=== PATIENT | male | born 1960 | race Caucasian/White ===

== ENCOUNTER 2024-02-07 23:37 | Inpatient (IN) | payer OTHER, SELFPAY ==
[2024-02-07] VITALS (9 sets, daily range): BP systolic 83–98; BP diastolic 61–66; BMI 30.6
--- NOTE | 2024-02-07 17:48 | ED.GENMED ---
History of Present Illness
General
Chief Complaint: Cold/Flu/URI Symptoms
Source: patient
Exam Limitations: none
Time Seen by Provider: 02/07/24 17:46
Nursing documentation reviewed up to this point in time: agreed with
History of Present Illness
History of Present Illness:
63-year-old male with a past medical history of hypertension, hyperlipidemia who presents to the emergency room for evaluation of flulike syndrome�[facility] of tachycardia and hypotension in the setting of these
symptoms. Patient reports that he started feeling ill last night around 10 PM and was up most of the night with fever/chills (Tmax 104 degrees Fahrenheit) as well as nausea and vomiting. He says he has had some crampy abdominal pain. He says he
has had mild cough and rhinorrhea but this is actually been an ongoing issue for about 2 weeks�he says he is being treated for sinus infection with amoxicillin and steroids for the past week. He has had some mild shortness of breath since last
night. Denies any chest pain. He denies any diarrhea. He denies any headache or neck pain. He denies any sore throat. Denies any other complaints. No known sick contacts. Initially seen in urgent care and was found to be tachycardic and
mildly hypotensive and EMS was called to transport to the [facility] on their arrival his blood pressure was 108/60 and he was complaining of nausea. He was given IV Zofran, IV fluids and transported to the ER.
Past History
Past History
ED Past Medical History: HTN, Hypercholesterolemia, Hypothyroidism and Other (depression)
ED Past Surgical History: None (lamienctomy)
Social History
Tobacco: Non-smoker
Alcohol: Occasional
Drug: None
Personal:
Living: with family
Family History
Family History: CAD (father cad in 80s) and Other
Review of Systems
Review of Systems
All Other Systems: ROS reviewed and negative except as documented in HPI and ROS
Constitutional: Reports fever, fatigue and chills
EENT: Reports runny nose; Denies sore throat
Respiratory: Reports cough and trouble breathing
Cardiac: Denies chest pain or palpitations
ABD/GI: Reports abdominal pain, nausea and vomiting; Denies diarrhea
: Denies flank pain
Musculoskeletal: Denies neck pain or back pain
Neurological: Denies dizzy or headache
Phy Exam
Physical Exam
Physical Exam:
General: Awake, alert, oriented x3; no acute distress
Head: Normocephalic, atraumatic
Eyes: Conjunctiva normal, sclera anicteric
Throat: Airway intact, handling secretions, somewhat dry mucous membranes
Neck: Trachea midline, supple without meningismus
Lungs: Clear to auscultation bilaterally, no wheezing, rales, rhonchi
Heart: Tachycardia with regular rhythm, no murmurs, gallops, or rubs
Abd: Soft, non distended, mild diffuse tenderness
Neuro: No gross deficits
Skin: no rash
Extremities: No edema in extremities, warm and well-perfused
Scores
Heart Failure Risk
Heart Failure Risk Score: Not Applicable
Heart Score for Chest Pain Patients
STEMI patient?: Not applicable
Withdrawal Assessment of Alcohol
Withdrawal Assessment Completed?: Not applicable
Course
Orders/Labs/Results
Orders:
Orders
02/07/24 17:46
Electrocardiogram (*1) Urgent
Reason for Study: Abdominal Pain
EKG- Treatment ONCE
CR Chest - 2 Views Urgent
Comment:
Reason For Exam: cough, sob
02/07/24 17:47
0.9% Sodium Chloride 1000 ml [Nss] 1,000 ml IV BOLUS
Ibuprofen [Motrin] 400 mg PO NOW STA
02/07/24 17:53
CT Abd/pelvis W Iv Cont Urgent
Comment:
Reason For Exam: mid abd pain, N/V, fever
02/07/24 18:00
COVID-19 Antigen Urgent
Source: Nasal Swab
CPK [Creatine Phosphokinase] Urgent
Complete Blood Count/With Diff Urgent
Comprehensive Metabolic Panel Urgent
Lipase Urgent
Magnesium Urgent
Troponin I Urgent
Influenza A+B Rapid Molecular Urgent
ANASTASIA Source: Nasal Swab
Specimen Description:
02/07/24 19:42
US Abdomen Complete/Upper Urgent
Comment:
Reason For Exam: abd pain, n/v, fever
02/07/24 19:47
0.9% Sodium Chloride 1000 ml [Nss] 1,000 ml IV BOLUS
02/07/24 22:46
Piperacillin/Tazo 3.375 Gram [Zosyn] 3.375 gram in 50 ml IV NOW
02/07/24 22:47
Lactate Level [Lactic Acid] Urgent
02/07/24 22:48
NSS 1000mL Bolus over 1 hr 0.9% Sodium Chloride 1000 ml [Nss] 1,000 ml IV BOLUS
02/07/24 23:00
Blood Culture Q30M
ANASTASIA Source: Blood/Venous
Specimen Description:
02/07/24 23:30
Blood Culture Q30M
ANASTASIA Source: Blood/Venous
Specimen Description:
Abnormal Lab Results
02/07/24
18:00
RBC 4.21 L 10^6/uL
(4.70-6.10)
Hct 38.5 L %
(39.0-52.0)
MCH 32.3 H pg
(27.0-31.0)
Plt Count 124 L 10^3/uL
(130-400)
MPV 10.6 H fL
(7.4-10.4)
Absolute Neuts (auto) 8.3 H 10^3/uL
(1.4-6.5)
Absolute Lymphs (auto) 0.3 L 10^3/uL
(1.2-3.4)
Neutrophils % 91.7 H %
(42.2-75.2)
Lymphocytes % 3.1 L %
(20.5-51.1)
Sodium 132 L mmol/L
(135-145)
BUN 33 H mg/dl
(9-20)
Glucose 141 H mg/dl
(70-99)
Creatine Kinase 53 L U/L
(55-170)
Total Protein 6.1 L g/dl
(6.3-8.2)
02/07/24 18:00
02/07/24 18:00
Vital Signs
Initial and Last Documented VS:
Initial Vital Signs
Temp Pulse Resp BP Pulse Ox
38.8 C H 102 18 91/63 93
02/07/24 17:53 02/07/24 17:53 02/07/24 17:53 02/07/24 17:53 02/07/24 17:53
Last Documented Vital Signs
Temp Pulse Resp BP Pulse Ox
37.5 C 76 13 88/63 96
02/07/24 19:51 02/07/24 22:15 02/07/24 22:15 02/07/24 22:00 02/07/24 22:15
MDM/Problems Addressed
Differential Diagnosis Includes:
Gastritis, gastroenteritis, pancreatitis, cholelithiasis/cholecystitis, atypical anginal symptoms
MDM/Problems Addressed:
63-year-old male presents for evaluation of flulike syndrome started last night; has had rhinorrhea and cough for about 2 weeks but last night developed nausea/vomiting, high fever, chills, mild shortness of breath. Seen initially at urgent care
and transported via EMS to the hospital for tachycardia and hypotension. Per EMS he was normotensive on their arrival but did receive some fluids and Zofran en route. Vitals and exam as above. Will place an IV send labs including a CBC and a CMP,
lipase. Check EKG and troponin in an abundance of caution. Will check chest x-ray. Swab for COVID and flu. Check CT abdomen pelvis. Will provide some additional IV fluids. Motrin for fever�received Tylenol earlier in the afternoon from his
. Monitor closely reassess after the above.
Labs reviewed: CBC unremarkable, CMP no clinically significant abnormalities. LFTs and lipase notably normal. His COVID and flu swabs are negative. Chest x-ray showed no acute disease. CT abdomen pelvis showed gastric wall thickening which can
be seen with gastritis�certainly viral gastroenteritis could account for his symptoms however he also had distended gallbladder. He is still hypotensive. Will provide additional fluids sent for ultrasound to better evaluate for possible acute
cholecystitis.
Upper abdominal ultrasound shows prominent gallbladder with stones and sludge and top normal gallbladder wall thickness. Negative sonographic Ruby sign. Patient remains mildly hypotensive low 90s systolic despite 2 L of IV fluid. At this point
concerning for that this could be an acute cholecystitis. Will continue with fluid resuscitation. Send lactate and blood cultures. Cover with antibiotics. Discussed with general surgery for evaluation. Will admit for serial exams and continued
monitoring. Case discussed with hospitalist.
*Radiology
Radiology exam reviewed: preliminary read by ED provider and radiology read reviewed
*Pulse Oximetry
Patient hypoxic: no
*Critical Care Note
Total Time (30-74mins, 75-104mins- exclusive of procedures): Not Applicable
Data Reviewed
Source: patient, spouse and ambulance crew
Patient Management
Discussion with other providers: Hospitalist (Discussed with hospitalist) and Residential [employer] Sealing Technician (Discussed with surgeon)
Escalation/DeEscalation of care consider admission/obs:
Admission indicated
ED Attending Note
-
Portions of this chart may have been created with voice recognition software.� Occasional wrong word or��sound alike� substitutions may have occurred due to the inherent limitations of voice recognition software.
Discharge Plan
Departure
Patient Disposition: Admit
Date of Disposition: 02/07/24
Time of Disposition: 22:57
Admit to doctor: Shon
Presentation/result/management discussed w/ accepting MD/DO: Hospitalist
Discharge Problem:
Acute cholecystitis, Nausea & vomiting, Gastritis
Prescriptions:
No Action
cyclobenzaprine 10 MG tablet
10 mg PO TIDPRN PRN (Reason: muscle spasm) Qty: 30 0RF
ibuprofen 600 MG tablet
600 mg PO TIDPRN PRN (Reason: pain) Qty: 30 0RF
Referrals:
Hina Andrea MD [Family Provider] -
Interventions
Interventions:
*Risk Screen - Suicide Last Done: 02/07/24 17:49
*General Assessment Last Done: 02/07/24 17:49
*Neglect/Abuse Screening Last Done: 02/07/24 17:49
ED- Fall Risk Assessment Last Done: 02/07/24 17:55
*ED COVID-19 Vaccine History Last Done: 02/07/24 17:49
ED- Cardiac Assessment Last Done: 02/07/24 17:53
ED- Neurological Assessment Last Done: 02/07/24 17:53
ED- Pulmonary Assessment Last Done: 02/07/24 17:53
Discharge Date and Time
Print Language: WELSH
[2024-02-07] MEDS: MOTRIN 400 MG PO (17:56)
[2024-02-07] MEDS: NSS 1000 IV ×3 (17:56→23:22)
[2024-02-07 18:10] LABS: % Basophils 0.2 % (0-2); % Eosinophils 0.1 % (0-6); % Immature Granulocytes 0.4 % (0-0.5); % Lymphocytes 3.1 % (20.5-51.1); % Monocytes 4.5 % (1.7-9.3); % Neutrophils 91.7 % (42.2-75.2); Absolute Lymphocytes 0.3 10^3/uL (1.2-3.4); Absolute Monocytes 0.4 10^3/uL (0.1-0.6); Absolute Neutrophils 8.3 10^3/uL (1.4-6.5); Hematocrit 38.5 % (39.0-52.0); Hemoglobin 13.6 g/dL (13.0-18.0); Mean Corp Hgb Conc. 35.3 g/dL (33.0-37.0); Mean Corpuscular Hgb 32.3 pg (27.0-31.0); Mean Corpuscular Volume 91.4 fL (80.0-94.0); Mean Platelet Volume 10.6 fL (7.4-10.4); Nucleated Red Blood Cells % 0 % (-); Platelet Count 124 10^3/uL (130-400); Red Blood Cell Count 4.21 10^6/uL (4.70-6.10); Red Cell Dist. Width 12.6 % (11.5-14.5); White Blood Cell Count 9.1 10^3/uL (4.8-10.8)
[2024-02-07 18:24] LABS: ALT (SGPT) 48 U/L (0-50); AST (SGOT) 27 U/L (17-59); Albumin 3.7 g/dl (3.5-5.0); Alkaline Phosphatase 44 U/L (38-126); Blood Urea Nitrogen 33 mg/dl (9-20); Calcium 8.5 mg/dl (8.4-10.2); Carbon Dioxide 24 mmol/L (22-30); Chloride 100 mmol/L (98-107); Creatine Phosphokinase 53 U/L (55-170); Estimated Creatinine Clearance 101 ml/min; Glucose 141 mg/dl (70-99); Lipase 41 U/L (23-300); Magnesium 1.9 mg/dl (1.6-2.3); Potassium 3.6 mmol/L (3.5-5.1); Sodium 132 mmol/L (135-145); Total Protein 6.1 g/dl (6.3-8.2); eGFR > 60.00
[2024-02-07 18:25] LABS: COVID-19 Antigen Negative (Negative)
[2024-02-07 18:34] LABS: Troponin I < 0.012 ng/ml
[2024-02-07] MEDS: ZOSYN 50 IV (23:22)
--- NOTE | 2024-02-07 23:36 | HPS.HSE ---
Family Physician
-
Family Physician: Hina Andrea MD
Chief Complaint
-
vomiting, fever
History of Present Illness
63-year-old male past medical history of hypertension, hyperlipidemia, hypothyroidism, depression, presenting with nausea vomiting, fever and bilateral lower abdominal pain.
Patient developed postnasal drip, sinus pressure approximately 2 weeks ago and was diagnosed with acute sinusitis and started on amoxicillin and steroids. He is due to finish amoxicillin in a few days. He had some improvement in the symptoms. He
denied any cough or sore throat or shortness of breath or chest pain.
He was feeling okay until last night around 10 PM he started having fevers up to 104 nausea and vomiting. He had crampy abdominal pain particular in the bilateral lower quadrants. Denied any pain in the right upper quadrant. Denies diarrhea.
Denies sick contacts. Denies any prior history of gallbladder problems.
He went to urgent care and was found to be tachycardic and mildly hypertensive and EMS was called.
He drinks alcohol occasionally. Denies smoking.
Medical History
Past Medical History
Past Medical History: Reports Other (hypertension, hyperlipidemia, hypothyroidism, depression)
Past Surgical History: Reports Other (laminectomy )
Social History
Tobacco: Non-smoker
Alcohol: Occasional
Drug: None
Family History
Family History: Not pertinent
Allergies / Home Medications
Allergies reflects when Allergies were last updated in [facility].
Home Medications with original date entered in [facility]
Allergy/Medication List:
Allergies
Allergy/AdvReac Type Severity Reaction Status Date / Time
No Known Allergies Allergy Verified 02/07/24 17:43
Home Medications
acetaminophen 325 mg tablet (Tylenol) 650 mg PO Q6H PRN fever/mild pain 02/07/24
alfuzosin 10 mg tablet,extended release 24 hr 10 mg PO HS 02/07/24
aspirin 81 mg capsule 81 mg PO DAILY 02/07/24
atorvastatin 20 mg tablet 20 mg PO HS 02/07/24
fluoxetine 40 mg capsule 40 mg PO DAILY 02/07/24
gabapentin 300 mg capsule 300 mg PO BID 02/07/24
ibuprofen 200 mg tablet 400 mg PO Q6H PRN fever/mild pain 02/07/24
levothyroxine 50 mcg tablet 50 mcg PO DAILY 02/07/24
losartan 100 mg-hydrochlorothiazide 25 mg tablet 1 tab PO DAILY 02/07/24
Review of Systems
-
History Source: Patient
A 12 point ROS was completed and negative except as noted: Yes
Constitutional: Reports No Symptoms
EENT: Reports See HPI
Respiratory: Reports See HPI
Cardiac: Reports No Symptoms
Abdomen/GI: Reports See HPI
: Reports No Symptoms
Musculoskeletal: Reports No Symptoms
Skin: Reports No Symptoms
Neurological: Reports No Symptoms
Endocrine: Reports No Symptoms
Hematologic/Lymphatic: Reports No Symptoms
Psych: Reports No Symptoms
Physical Exam
Vital Signs
Vital Signs
Temp Pulse Resp BP Pulse Ox
99.5 F 79 11 98/66 94
02/07/24 19:51 02/07/24 23:00 02/07/24 23:15 02/07/24 23:00 02/07/24 23:15
Physical Exam
General: Well Developed, Well Nourished and No Apparent Distress
HEENT: NormoCephalic, Moist mucous membranes and Atraumatic
Respiratory: Clear
Cardiac: S1/S2 and Regular Rhythm; No Murmur or Rub
GI: Soft, Non Tender, Non Distended and Normal Bowel Sounds; No Organomegaly
Rectal: Deferred by Provider
Musculoskeletal: No Clubbing, No Cyanosis and No Edema
Skin: No Rash
Neuro: Nonfocal/grossly intact
Laboratory Results
-
02/07/24 18:00
02/07/24 18:00
Laboratory Results
Total Bilirubin 1.0 mg/dl (0.2-1.3) 02/07/24 18:00
AST 27 U/L (17-59) 02/07/24 18:00
ALT 48 U/L (0-50) 02/07/24 18:00
Alkaline Phosphatase 44 U/L (38-126) 02/07/24 18:00
Troponin I < 0.012 ng/ml 02/07/24 18:00
Lipase 41 U/L (23-300) 02/07/24 18:00
Data Reviewed
-
Lab Data: Labs Reviewed by me
Old Records: Reviewed
Impression/Plan
-
IMPRESSION:
PLAN:
# Hypotension/abdominal pain/vomiting secondary for acute cholecystitis/gastritis
-Atypical presentation
-Chest x-ray shows left basilar opacity favored to be atelectasis
-COVID and influenza negative
-CT abdomen pelvis shows diffuse gastric wall thickening suggestive of gastritis, mildly distended gallbladder
-Ultrasound shows relatively prominent gallbladder containing stones and sludge negative sonographic Ruby sign
-Check blood cultures
-IV fluids
-N.p.o.
-Hold aspirin
-Zosyn
-General Surgery consulted, may need more emergent cholecystectomy if patient clinically worsens
-Hold ibuprofen
-IV Protonix 40 daily
# Recent acute sinusitis
-Currently on amoxicillin
Essential hypertension
-Hold losartan/hydrochlorothiazide
Hyperlipidemia
-Continue statin
Hypothyroidism
-Continue levothyroxine
Depression
-Continue fluoxetine
-Continue nortriptyline
BPH
-Hold alfuzosin
Full code
DVT prophylaxis�SCDs
N.p.o.
[2024-02-07 23:45] LABS: Lactic Acid 0.8 mmol/L (0.7-2.0)
[2024-02-08] VITALS (16 sets, daily range): BP systolic 85–119; BP diastolic 59–72; BMI 30.9
[2024-02-08] MEDS: ZOSYN IV (00:35)
[2024-02-08] MEDS: NSS 1000 IV ×3 (01:18→23:32)
[2024-02-08] MEDS: ZOSYN 50 IV ×4 (06:23→23:32)
[2024-02-08] MEDS: SYNTHROID 50 MCG PO (06:24)
[2024-02-08 06:58] LABS: % Basophils 0.1 % (0-2); % Eosinophils 0.3 % (0-6); % Immature Granulocytes 0.3 % (0-0.5); % Lymphocytes 10.8 % (20.5-51.1); % Monocytes 4.9 % (1.7-9.3); % Neutrophils 83.6 % (42.2-75.2); Absolute Monocytes 0.4 10^3/uL (0.1-0.6); Absolute Neutrophils 7.3 10^3/uL (1.4-6.5); Hematocrit 35.6 % (39.0-52.0); Hemoglobin 12.1 g/dL (13.0-18.0); Mean Corpuscular Hgb 32.6 pg (27.0-31.0); Mean Platelet Volume 11.1 fL (7.4-10.4); Nucleated Red Blood Cells % 0 % (-); Platelet Count 120 10^3/uL (130-400); Red Blood Cell Count 3.71 10^6/uL (4.70-6.10); Red Cell Dist. Width 12.7 % (11.5-14.5); White Blood Cell Count 8.8 10^3/uL (4.8-10.8)
[2024-02-08 07:11] LABS: ALT (SGPT) 39 U/L (0-50); AST (SGOT) 21 U/L (17-59); Albumin 3.1 g/dl (3.5-5.0); Alkaline Phosphatase 37 U/L (38-126); Blood Urea Nitrogen 23 mg/dl (9-20); Calcium 7.7 mg/dl (8.4-10.2); Carbon Dioxide 27 mmol/L (22-30); Chloride 104 mmol/L (98-107); Estimated Creatinine Clearance 114 ml/min; Glucose 98 mg/dl (70-99); Potassium 3.9 mmol/L (3.5-5.1); Sodium 138 mmol/L (135-145); Total Bilirubin 0.6 mg/dl (0.2-1.3); Total Protein 5.5 g/dl (6.3-8.2); eGFR > 60.00
[2024-02-08] MEDS: PROZAC 40 MG PO (08:15)
[2024-02-08] MEDS: NEURONTIN 300 MG PO ×2 (08:16→20:02)
[2024-02-08] MEDS: PROTONIX IV 40 MG IV (08:16)
--- NOTE | 2024-02-08 12:23 | CM ---
Chart reviewed. Patient is here for, according to attending, 'hypotension/abdominal pain/vomiting secondary to acute cholecystitis/gastritis.' Patient's also at bedside. CM introduced self and role. Patient is independent. He lives at home with
and father in law. He owns a ML home, with 5 [address]. Does not own any DME. 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 He has active PCP and pharmacy ([facility] on [facility]). No +SDOHs.
ANTICIPATED DISCHARGE PLAN: Discharge to home with , when medically cleared.
[2024-02-08] MEDS: TYLENOL 650 MG PO (12:24)
--- NOTE | 2024-02-08 12:43 | CON.GS ---
Medical History
-
Chief Complaint: Fever
History of Present Illness:
Mr. Hendricks is a 63 yo male with a h/o htn, hld, and lumbar spinal surgery who presents for evaluation of fever. He notes after he had dinner on Thursday (02/05), he developed nausea and vomiting. He notes poor appetite since that time. He had
some cramping pain in the lower abdomen which he attributed to constipation. He developed a fever of 104 at home with more n/v last night and presented to urgent care. He was noted to be tachycardic with low BP and it was recommended that he come to
the ED for further evaluation. He denies nausea or abdominal pain currently. Abdomen is nontender and nondistended on exam.
Past Medical History
Past Medical History: HTN, Hypercholesterolemia, Hypothyroidism and Other (LE neuropathy )
Past Surgical History: Orthopedic (L5-S1 laminectomy) and Other (colonoscopy 2022 with )
Social History
Tobacco: Non-Smoker
Alcohol: Occasional
Personal:
Living: With Family
Employment: Employed
Family History
Family History: Cancer (colon ca in mother)
Allergies / Home Medications
Allergy/AdvReac Type Severity Reaction Status Date / Time
No Known Allergies Allergy Verified 02/07/24 17:43
�Medication �Instructions �Recorded �Confirmed �Type
alfuzosin 10 mg tablet,extended 10 mg PO HS 02/07/24 02/08/24 History
release 24 hr
atorvastatin 20 mg tablet 20 mg PO HS 02/07/24 02/08/24 History
fluoxetine 40 mg capsule 40 mg PO DAILY 02/07/24 02/08/24 History
gabapentin 300 mg capsule 300 mg PO BID 02/07/24 02/08/24 History
ibuprofen 200 mg tablet 400 mg PO Q6HPRN PRN fever/mild 02/07/24 02/08/24 History
pain
levothyroxine 50 mcg tablet 50 mcg PO DAILY 02/07/24 02/08/24 History
losartan 100 1 tab PO DAILY 02/07/24 02/08/24 History
mg-hydrochlorothiazide 25 mg tablet
amoxicillin 875 mg-potassium 1 tab PO BID 02/08/24 02/08/24 History
clavulanate 125 mg tablet
aspirin 81 mg tablet,delayed 81 mg PO DAILY 02/08/24 02/08/24 History
release
Review of Systems
-
History Source: Patient and Family
All other systems: Negative unless noted
A 10 point review of systems was completed, and was negative except as per HPI.
Physical Exam
Vital Signs
Temp Pulse Resp BP Pulse Ox
97.8 F 65 12 113/72 97
02/08/24 11:48 02/08/24 11:45 02/08/24 11:45 02/08/24 11:00 02/08/24 11:45
02/07/24 02/08/24 02/09/24
06:59 06:59 06:59
Actual Weight 99.6 kg
Body Mass Index (BMI) 30.6
Lab Results
02/08/24 06:20
02/08/24 06:20
WBC 8.8 10^3/uL (4.8-10.8) 02/08/24 06:20
Hgb 12.1 g/dL (13.0-18.0) L 02/08/24 06:20
Hct 35.6 % (39.0-52.0) L 02/08/24 06:20
Plt Count 120 10^3/uL (130-400) L 02/08/24 06:20
Abs Immat Gran (auto) 0.0 10^3/uL (0-0.05) 02/08/24 06:20
Neutrophils % 83.6 % (42.2-75.2) H 02/08/24 06:20
Physical Exam
General: Well Developed, Well Nourished and No Apparent Distress
HEENT: Normocephalic and Moist Mucous Membranes
Respiratory: Non Labored Respirations
GI: Soft, Non Tender and Non Distended
Skin: Warm and Dry
Neuro: Awake, Alert and AO x 3
Psych: Calm
Data Reviewed
-
CT Scan: Image Personally Visualized and interpreted, Report Reviewed by me, Discussed with Physician, Discussed with Nurse, Discussed with Patient and Discussed with Family
Ultrasound: Report Reviewed by me, Discussed with Physician, Discussed with Patient and Discussed with Family
Labs: Labs Reviewed by me, Discussed with Physician, Discussed with Patient and Discussed with Family
Old Records: Reviewed
Assessment / Plan
-
63 yo male presenting with 2 days of intermittent n/v after meals with high fever at home of 104 causing him to present for evaluation. His tmax is 101.9 since presentation with stable vital signs. He has some cramping in the lower abdomen with
constipation noted, but otherwise has no abdominal pain or tenderness.
CT imaging with enlarged gallbladder but no significant pericholecystic edema/inflammatory changes with nonobstructing renal calculi and gastric thickening. US imaging with prominent gallbladder containing stones and sludge with top normal
gallbladder wall. Negative sonographic Ruby's sign.
Possible acute cholecystitis as the etiology of his fever and vomiting, however, exam is benign without abdominal tenderness to deep palpation.
--Will check HIDA scan in further evaluation
--IV abx
--Keep NPO
--Will follow
--- NOTE | 2024-02-08 15:00 | PTCARENOTE ---
Received patient at 1500 from ED. Patient AAOx3, c/o minimal lower abdominal pain. Patient ambulated from [place] to bed with a steady gait. IV infusing L AC. at bedside. Patient remains NPO for possible OR. Patient verbalized understanding, call
gavin in reach.
--- NOTE | 2024-02-08 16:51 | W.PN.HOSP.TC ---
Today's Communication/Plan
-
GI consult; NPO p MN for possible EGD tomorrow
Assessment / Plan
Assessment / Plan
Assessment:
Acute epigastric pain/gastritis
- CT: Diffuse gastric wall thickening which can be seen with gastritis. Mild colonic stool burden. The gallbladder is mildly distended without CT findings suggestive of acute cholecystitis and can be seen with fasting state
- US: Relative prominent gallbladder containing stones and sludge with top normal gallbladder wall. Negative sonographic Ruby's sign. No findings to suggest biliary tract dilatation.
- HIDA: No scintigraphic evidence of cystic duct duct obstruction.
- GS evaluated, no surgical intervention
- clears; NPO p MN for possible EGD. GI consulted
- continue IV PPI
- hold off NSAIDs
Recent acute sinusitis
- currently on Augmentin; swapped to Zosyn inpatient
Essential hypertension
- hold losartan/hydrochlorothiazide for hypotension
- monitor BP trends for eventual resumption
Hyperlipidemia
- continue statin
Hypothyroidism
- continue levothyroxine
Depression
- continue fluoxetine
- continue nortriptyline
BPH
- hold alfuzosin
DVT ppx: SCDs
Code: Full
Anticipated Discharge: > 48 hours
Subjective/Interval History
-
Date of Service: February 08, 2024
reports epigastric discomfort
no diarrhea or vomiting currently, afebrile
Objective Data
-
Labs:
Laboratory Results
02/08/24
06:20
WBC 8.8
Hgb 12.1 L
Hct 35.6 L
Plt Count 120 L
Sodium 138
Potassium 3.9
Chloride 104
Carbon Dioxide 27
BUN 23 H
Creatinine 0.8
Glucose 98
Calcium 7.7 L
Total Bilirubin 0.6
AST 21
ALT 39
Alkaline Phosphatase 37 L
Vital Signs:
Vital Signs
Temp Pulse Resp BP Pulse Ox
97.7 F 63 16 119/71 96
02/08/24 15:22 02/08/24 15:22 02/08/24 15:22 02/08/24 15:22 02/08/24 15:22
Physical Exam
-
General: No Apparent Distress
HEENT: Normocephalic and Atraumatic
Respiratory: Negative Wheezes
Cardiac: Regular Rhythm and S1/S2
GI: Soft and Nontender
Neuro: AO x 3
Psych: Calm
Data Reviewed
-
Total Time Spent with Patient (in minutes): 43
Labs: Labs Reviewed by me
[2024-02-08] MEDS: LIPITOR 20 MG PO (21:26)
[2024-02-09] MEDS: ZOSYN 50 IV ×2 (05:02→11:55)
[2024-02-09] MEDS: SYNTHROID 50 MCG PO (05:03)
[2024-02-09 06:40] VITALS: BP 141/74
[2024-02-09 07:07] LABS: Hematocrit 33.5 % (39.0-52.0); Hemoglobin 11.8 g/dL (13.0-18.0); Mean Corp Hgb Conc. 35.2 g/dL (33.0-37.0); Mean Corpuscular Hgb 32.7 pg (27.0-31.0); Mean Corpuscular Volume 92.8 fL (80.0-94.0); Platelet Count 112 10^3/uL (130-400); Red Blood Cell Count 3.61 10^6/uL (4.70-6.10); Red Cell Dist. Width 12.6 % (11.5-14.5); White Blood Cell Count 5.8 10^3/uL (4.8-10.8)
[2024-02-09 07:38] LABS: ALT (SGPT) 34 U/L (0-50); AST (SGOT) 24 U/L (17-59); Alkaline Phosphatase 40 U/L (38-126); Blood Urea Nitrogen 15 mg/dl (9-20); Carbon Dioxide 24 mmol/L (22-30); Estimated Creatinine Clearance 99 ml/min; Glucose 80 mg/dl (70-99); Potassium 3.5 mmol/L (3.5-5.1); Sodium 138 mmol/L (135-145); Total Bilirubin 0.6 mg/dl (0.2-1.3); Total Protein 5.5 g/dl (6.3-8.2); eGFR > 60.00
[2024-02-09 07:43] LABS: Chloride 106 mmol/L (98-107)
--- NOTE | 2024-02-09 08:18 | CON.GI ---
Addendum entered and electronically signed by Matthew Crawford DO 02/09/24 10:58:
I saw and examined the patient.
The SUPERVISOR FINISHING's note was reviewed and I agree with the note.
Comment: This is a 63 y.o male with a past medical history as below presenting with abdominal pain and fevers along with nausea/vomiting. Found to have diffuse gastric wall thickening concerning for gastritis on CT imaging. Still with persistent
dyspepsia. Fevers now resolved. Will proceed with diagnostic EGD for further evaluation. See same day EGD report for additional findings and recommendations.
Original Note:
Consultation
-
Date/Time Consultation Requested: 02/08/24 1630
Date/Time Consultation Performed: 02/09/24 4695
Requesting Provider: Dr. Dwyer
Performing Provider: Dr. Crawford/GIGI Bishop
Reason for Consultation: abd pain
Medical History
Chief Complaint / HPI
Chief Complaint: fever, n/v, abd pain
History of Present Illness:
63-year-old male with past medical history of hyperlipidemia, hypertension, diverticulosis, colon polyps, hypothyroidism, lower extremity neuropathy who presents to the emergency room with acute onset of fever, nausea, vomiting and abdominal pain
that started on Thursday evening. The patient states that he ate dinner with his family. That evening he went up to bed started with acute onset of myalgias fever of 104 �F with acute onset of nausea and vomiting with abdominal discomfort. He
states that he vomited through the night. His took him to urgent care. Upon evaluation they promptly sent him to the emergency room for further evaluation. He states that he stopped having nausea and vomiting. He still did have a fever at
time of arrival to the emergency room. He states that his discomfort became lower in the periumbilical region but dissipated. He did have a period of darker urine which did resolve. This morning he has some low back pain but feels it may be
secondary to lying in the bed. He has not had a bowel movement since Thursday. He is now afebrile. No other family members are ill. A little less than a month ago he was treated for sinusitis by ENT as he was having some 'thickness in the back
of his throat'. He was given approximately 10 days of steroids as well as 4 weeks of Augmentin. Prior to this he was tried on omeprazole for a couple weeks by his PCP without any change in symptoms. He denies any NSAID use except for aspirin 81 mg
daily. He denies any melena, hematochezia, dysphagia or odynophagia. No early satiety or unintentional weight loss. No acholic stools. Patient had workup to rule out acute cholecystitis. This included CT of the abdomen and pelvis, ultrasound
and HIDA scan.Ultrasound did contain prominent gallbladder containing stones and sludge however HIDA scan was negative. Patient's LFTs were always within normal limits.
Past Medical History
Past Medical History: Other (Hypertension, hyperlipidemia, diverticulosis, hypothyroidism, lower extremity neuropathy)
Past Surgical History: Other (L5-S1 laminectomy)
Social History
Tobacco: Non-Smoker
Alcohol: Occasional (Approximately 1 to 2 glasses of wine or beer daily)
Drug: None
Personal:
Living: With Family
Family History
Family History: Other (Mother with history of colon cancer)
Allergies / Home Medications
Allergy/AdvReac Type Severity Reaction Status Date / Time
No Known Allergies Allergy Verified 02/07/24 17:43
�Medication �Instructions �Recorded
alfuzosin 10 mg tablet,extended 10 mg PO HS 02/07/24
release 24 hr
atorvastatin 20 mg tablet 20 mg PO HS 02/07/24
fluoxetine 40 mg capsule 40 mg PO DAILY 02/07/24
gabapentin 300 mg capsule 300 mg PO BID 02/07/24
ibuprofen 200 mg tablet 400 mg PO Q6HPRN PRN fever/mild 02/07/24
pain
levothyroxine 50 mcg tablet 50 mcg PO DAILY 02/07/24
losartan 100 1 tab PO DAILY 02/07/24
mg-hydrochlorothiazide 25 mg tablet
amoxicillin 875 mg-potassium 1 tab PO BID 02/08/24
clavulanate 125 mg tablet
aspirin 81 mg tablet,delayed 81 mg PO DAILY 02/08/24
release
Review of Systems
-
All other systems: A 12 pt ROS was Negative except as stated above in HPI
Vital Signs
Temp Pulse Resp BP Pulse Ox
98.7 F 60 18 141/74 95
02/09/24 06:40 02/09/24 06:40 02/09/24 06:40 02/09/24 06:40 02/09/24 06:40
Physical Exam
Exam
General: No Apparent Distress
Respiratory: Clear
Cardiac: Regular Rhythm
GI: Soft, Non Tender, Non Distended and Normal Bowel Sounds
Musculoskeletal: No Edema
Skin: Warm and Dry
Neuro: AO x 3
Psych: Calm
Results
WBC 5.8 10^3/uL (4.8-10.8) 02/09/24 06:09
Hgb 11.8 g/dL (13.0-18.0) L 02/09/24 06:09
Hct 33.5 % (39.0-52.0) L 02/09/24 06:09
MCV 92.8 fL (80.0-94.0) 02/09/24 06:09
Plt Count 112 10^3/uL (130-400) L 02/09/24 06:09
Absolute Neuts (auto) 7.3 10^3/uL (1.4-6.5) H 02/08/24 06:20
Sodium 138 mmol/L (135-145) 02/09/24 06:09
Potassium 3.5 mmol/L (3.5-5.1) 02/09/24 06:09
Chloride 106 mmol/L (98-107) 02/09/24 06:09
Carbon Dioxide 24 mmol/L (22-30) 02/09/24 06:09
BUN 15 mg/dl (9-20) 02/09/24 06:09
Creatinine 0.9 mg/dL (0.7-1.3) 02/09/24 06:09
Calcium 8.0 mg/dl (8.4-10.2) L 02/09/24 06:09
Total Bilirubin 0.6 mg/dl (0.2-1.3) 02/09/24 06:09
AST 24 U/L (17-59) 02/09/24 06:09
ALT 34 U/L (0-50) 02/09/24 06:09
Alkaline Phosphatase 40 U/L (38-126) 02/09/24 06:09
Lipase 41 U/L (23-300) 02/07/24 18:00
Diagnostic Image Results:
Chest x-ray:Left basilar opacity favored to represent atelectasis.
CT abdomen pelvis with IV contrast only:
Diffuse gastric wall thickening which can be seen with gastritis. Mild colonic stool burden.
Nonobstructing renal calculi measuring up to 1.1 cm on the right and 0.8 cm on the left.
The gallbladder is mildly distended without CT findings suggestive of acute cholecystitis and can be seen with fasting state. If there is clinical suspicion for acute cholecystitis consider ultrasound for further evaluation.
Electronically signed by Eduar Finney MD, 02/07/2024 7:36 PM
Abd US:
IMPRESSION: Relative prominent gallbladder containing stones and sludge with top normal gallbladder wall. Negative sonographic Ruby's sign. No findings to suggest biliary tract dilatation.
Pancreas significantly obscured, most likely by overlying bowel gas.
Small bilateral nonobstructing renal calculi.
HIDA Scan:
Impression: No scintigraphic evidence of cystic duct duct obstruction.
Focus most likely representing activity within the gallbladder.
Prior GI Procedures:
EGD: Never
Colonoscopy: 03/13/2022 ([facility]) - Diverticulosis in the sigmoid colon and in the
descending colon.
COLO 11/22/2018 ([facility]) - One 8 mm polyp in the sigmoid colon, removed with a
hot snare. Resected and retrieved.
- Two 3 to 5 mm polyps in the rectum, removed with a hot
snare. Resected and retrieved.
- Diverticulosis in the sigmoid colon and in the
descending colon.
Assessment / Plan
-
63-year-old male with past medical history of hyperlipidemia, hypertension, diverticulosis, colon polyps, hypothyroidism, lower extremity neuropathy who presents to the emergency room with acute onset of fever, nausea, vomiting and abdominal pain
that started on Thursday evening. The patient states that he ate dinner with his family. That evening he went up to bed started with acute onset of myalgias fever of 104 �F with acute onset of nausea and vomiting with abdominal discomfort. He
states that he vomited through the night. His took him to urgent care. Upon evaluation they promptly sent him to the emergency room for further evaluation. Patient with gallbladder stones and sludge with negative HIDA scan. CT imaging
showing possible gastritis. Patient with recent prednisone use for sinusitis also with aspirin 81 mg daily. Drinks approximately 2 alcoholic beverages daily. No further episodes of fever. Slight downtrending of platelets down to 112 this
morning. Hemoglobin 11.8 after hydration. Lipase within normal limits.
Impression:
Fever-> resolved
Nausea/vomiting-> resolved
Acute epigastric/periumbilical discomfort-> gastric wall thickening seen on CT, recent prednisone use, daily alcoholic beverages (2), aspirin 81 mg daily.
Gallbladder stones/sludge-> negative HIDA scan
Recent sinusitis-> was on Augmentin, steroids completed
Plan:
-N.p.o. for EGD today
-Continue PPI
-Further recommendations to be forthcoming
-
-
Thank you for consultation and allowing me to participate in the patient's care. Please call the route sales person GI physician during the after hours with any questions or concerns.
[2024-02-09] MEDS: NEURONTIN 300 MG PO (08:28)
[2024-02-09] MEDS: PROTONIX IV 40 MG IV (08:28)
[2024-02-09] MEDS: PROZAC 40 MG PO (08:28)
[2024-02-09] MEDS: NSS (PRESERVATIVE FREE) 10 ML IV (08:29)
[2024-02-09 08:50] LABS: Hepatitis C Antibody Negative (Negative)
--- NOTE | 2024-02-09 09:03 | W.PN.SURGUPD ---
Surgical Update
Surgical Update
HIDA scan reviewed. No evidence of cystic duct obstruction. No plans or indication for cholecystectomy at this time.
-- Recommend a low-fat diet.
-- Follow-up as an outpatient in the general surgery office.
-- Please call with any questions or concerns.
--- NOTE | 2024-02-09 10:28 | PTCARENOTE ---
pt sent to GI lab via stretcher w/volunteer transport.
[2024-02-09 11:20] VITALS: BP 122/70; BP_SYST 10
[2024-02-09 11:21] VITALS: BP 122/70
[2024-02-09 11:30] VITALS: BP 123/73
[2024-02-09] MEDS: NSS 1000 IV (11:55)
[2024-02-09 12:01] VITALS: BP 139/74
--- NOTE | 2024-02-09 12:04 | PTCARENOTE ---
pt received from PACU at 1155. pt assisted to ambulate from stretcher to bed. VS: [id number]-/74, pox 97% on RA. IVF restarted. water provided and pt instructed regarding clear liquid diet. offering no c/o. care ongoing.
--- NOTE | 2024-02-09 12:19 | W.PN.HOSP.TC ---
Today's Communication/Plan
-
dc to home if tolerates diet - evening dinner
Assessment / Plan
Assessment / Plan
Assessment:
Acute epigastric pain/gastritis
- CT: Diffuse gastric wall thickening which can be seen with gastritis. Mild colonic stool burden. The gallbladder is mildly distended without CT findings suggestive of acute cholecystitis and can be seen with fasting state
- US: Relative prominent gallbladder containing stones and sludge with top normal gallbladder wall. Negative sonographic Ruby's sign. No findings to suggest biliary tract dilatation.
- HIDA: No scintigraphic evidence of cystic duct duct obstruction.
- GS evaluated, no surgical intervention
- s/p EGD 02/08: duodenitis and gastritis. Biopsies pending. PPI daily per GI
- stop NSAIDs
- CLD diet and if tolerates, ADAT and dc later this evening
- 10 day empiric Augmentin course for possible infectious etiology per GI
Recent acute sinusitis
- finish Augmentin
Essential hypertension
- resume losartan/hydrochlorothiazide
Hyperlipidemia
- continue statin
Hypothyroidism
- continue levothyroxine
Depression
- continue fluoxetine
- continue nortriptyline
BPH
- resume alfuzosin
DVT ppx: SCDs
Code: Full
More than 30 minutes spent in discharge including
Final examination of the patient
Summarizing hospital stay
Instructions for continuing care to all relevant caregivers
Preparation of discharge records, prescriptions, and referral forms
Total time spent (in minutes): 41
Anticipated Discharge: Today
Subjective/Interval History
-
Date of Service: February 09, 2024
s/p EGD with duodenitis and gastritis
Objective Data
-
Labs:
Laboratory Results
02/09/24
06:09
WBC 5.8
Hgb 11.8 L
Hct 33.5 L
Plt Count 112 L
Sodium 138
Potassium 3.5
Chloride 106
Carbon Dioxide 24
BUN 15
Creatinine 0.9
Glucose 80
Calcium 8.0 L
Total Bilirubin 0.6
AST 24
ALT 34
Alkaline Phosphatase 40
Vital Signs:
Vital Signs
Temp Pulse Resp BP Pulse Ox
97.6 F 56 16 139/74 97
02/09/24 12:01 02/09/24 12:01 02/09/24 12:01 02/09/24 12:01 02/09/24 12:01
I&O
02/08/24 02/09/24 02/10/24
06:59 06:59 06:59
Intake Total 2370 / 2370
Balance 2370 / 2370
Physical Exam
-
General: No Apparent Distress
HEENT: Normocephalic and Atraumatic
Respiratory: Negative Wheezes
Cardiac: Regular Rhythm and S1/S2
GI: Soft and Nontender
Musculoskeletal: No Edema
Neuro: AO x 3
Hematologic / Lymphatic: No Lymphadenopathy
Psych: Calm
Data Reviewed
-
Total Time Spent with Patient (in minutes): 41
Labs: Labs Reviewed by me
--- NOTE | 2024-02-09 12:28 | W.DS.TRANS ---
DC Summary - Consumer Marketing Specialist
-
Discharge Instructions:
Discharge Diagnosis/Procedures epigastric and lower abdominal pain. EGD 02/08
with gastritis and duodenitis
Diet Regular
Activity As tolerated
Bathing Restrictions None
Instructions:
Stand-Alone Forms:
Changes to Home Medications: No
Discharge Medications:
DC Medications w/original date entered in [facility]
alfuzosin 10 mg tablet,extended release 24 hr 10 mg PO HS 02/07/24
atorvastatin 20 mg tablet 20 mg PO HS 02/07/24
fluoxetine 40 mg capsule 40 mg PO DAILY 02/07/24
gabapentin 300 mg capsule 300 mg PO BID 02/07/24
levothyroxine 50 mcg tablet 50 mcg PO DAILY 02/07/24
losartan 100 mg-hydrochlorothiazide 25 mg tablet 1 tab PO DAILY 02/07/24
amoxicillin 875 mg-potassium clavulanate 125 mg tablet 1 tab PO BID 02/08/24
aspirin 81 mg tablet,delayed release 81 mg PO DAILY 02/08/24
pantoprazole 40 mg tablet,delayed release (Protonix) 40 mg PO DAILY #30 tabs 02/09/24
Home Medication Changes
Pending Results: No
Total time spent discharging patient (in min): 41
--- NOTE | 2024-02-09 13:20 | CM ---
Chart reviewed
Pt for discharge today
Has ride home
Plan - anticipate home no needs
--- NOTE | 2024-02-09 18:05 | PTCARENOTE ---
pt tolerated clear liquids after EGD and advanced to regular diet for dinner. pt tolerated 100% of dinner and endorses no c/o abdominal discomfort or nausea. pt agreeable to be discharged tonight. discharge instructions reviewed with verbalized
understanding.
[2024-02-09 18:08] VITALS: BP 124/78
== END 2024-02-09 18:30 | disposition home or self-care (01) | DRG 392 ==
LOC: 2 SOUTH 23:37
PROVIDERS: ADMITTING PHYSICIAN Hospitalist; ATTENDING PHYSICIAN Internal Medicine; CONSULT PHYSICIAN Surgery; EMERGENCY PHYSICIAN Emergency Medicine; FAMILY PHYSICIAN Family Medicine; OTHER PHYSICIAN Student in an Organized Health Care Education/Training Program
PROC: 0DB78ZX Excision of Stomach, Pylorus, Via Natural or Artificial Opening Endoscopic, Diagnostic (ICD-10-PCS; 2024-02-09)
PROC: 0DB98ZX Excision of Duodenum, Via Natural or Artificial Opening Endoscopic, Diagnostic (ICD-10-PCS; 2024-02-09)
DX: K29.70 Gastritis, unspecified, without bleeding (principal); Z11.52 Encounter for screening for COVID-19; E03.9 Hypothyroidism, unspecified; F32.A Depression, unspecified; I10 Essential (primary) hypertension; J01.90 Acute sinusitis, unspecified
CPT/HCPCS: 88305; 71046; 74177; 76700; 78226; 80053; 82550; 83605; 83690; 83735; 84484; 85025; 85027; 86803; 87040; 87502; 87811; 88342; 93005; 96361; 96365; 99285; A9537; Q9967

== ENCOUNTER 2024-02-13 22:17 | Inpatient (IN) | payer OTHER, SELFPAY ==
[2024-02-13 15:17] VITALS: BP 105/76
[2024-02-13 15:47] LABS: % Basophils 0.1 % (0-2); % Eosinophils 0.7 % (0-6); % Immature Granulocytes 0.4 % (0-0.5); % Lymphocytes 10.8 % (20.5-51.1); % Monocytes 6.2 % (1.7-9.3); % Neutrophils 81.8 % (42.2-75.2); Absolute Eosinophils 0.1 10^3/uL (0-0.7); Absolute Lymphocytes 1.2 10^3/uL (1.2-3.4); Absolute Monocytes 0.7 10^3/uL (0.1-0.6); Hematocrit 36.9 % (39.0-52.0); Hemoglobin 12.9 g/dL (13.0-18.0); Mean Corpuscular Hgb 32.3 pg (27.0-31.0); Mean Corpuscular Volume 92.3 fL (80.0-94.0); Mean Platelet Volume 10.3 fL (7.4-10.4); Nucleated Red Blood Cells % 0 % (-); Platelet Count 162 10^3/uL (130-400); Red Cell Dist. Width 12.2 % (11.5-14.5); White Blood Cell Count 11.1 10^3/uL (4.8-10.8)
[2024-02-13 16:09] LABS: COVID-19 Antigen Negative (Negative)
[2024-02-13 16:18] LABS: ALT (SGPT) 42 U/L (0-50); AST (SGOT) 32 U/L (17-59); Albumin 4.2 g/dl (3.5-5.0); Alkaline Phosphatase 55 U/L (38-126); Blood Urea Nitrogen 13 mg/dl (9-20); Calcium 9.2 mg/dl (8.4-10.2); Carbon Dioxide 30 mmol/L (22-30); Chloride 98 mmol/L (98-107); Glucose 131 mg/dl (70-99); Potassium 3.6 mmol/L (3.5-5.1); Sodium 135 mmol/L (135-145); eGFR > 60.00
[2024-02-13] MEDS: DILAUDID 0.5 MG IV ×2 (19:38→20:23)
[2024-02-13] MEDS: NSS 500 IV (19:39)
[2024-02-13] MEDS: ZOFRAN 4 MG IV (19:39)
[2024-02-13 19:53] LABS: Lipase 68 U/L (23-300)
[2024-02-13 21:14] VITALS: BP 111/64
--- NOTE | 2024-02-13 21:25 | HPS.HSE ---
Family Physician
-
Family Physician: Arlin De Jesus
Chief Complaint
-
Upper thoracic back pain with inspiration starting yesterday and temperature this morning 101.1F
History of Present Illness
63-year-old male complaining of upper back pain with inspiration and fever. Bilateral along the upper mid thoracic paraspinal muscles. He reports taking Tylenol this a.m. at 9:00 for a 101.1F temperature .He was discharged from [facility] 4 days
ago on 02/08/2025 secondary to duodenitis/gastritis he reports while here he did have SCDs in place. He states his 18-year-old daughter had history of a DVT in her leg, she was never tested for hematological workup as there was no prior family
history. He denies headache, sore throat, chest pain, palpitations, cough, abdominal pain, nausea, vomiting, diarrhea, urinary symptoms, leg pain
He had a recent admission 02/06 - 02/09/2024 with diagnosis epigastric lower abdominal pain patient was admitted with bilateral lower quadrant pain nausea vomiting and fever had unremarkable HIDA scan EGD showed duodenitis and gastritis he was
placed on PPI and regular diet he was empirically treated with Zosyn and plan for 10 days of oral Augmentin he was on oral Augmentin on admission due to a sinus infection and had 10 days remaining. He has past medical history of HTN, HLD,
hypothyroidism, depression, BPH
Medical History
Past Medical History
Past Medical History: Reports Other (hypertension, hyperlipidemia, hypothyroidism, depression, duodenitis gastritis 02/07/2024)
Past Surgical History: Reports Other (laminectomy, EGD 02/09/2024)
Social History
Tobacco: Non-smoker
Alcohol: Occasional
Drug: None
Personal:
Living: With Family
Employment: Employed
Family History
Family History: Other (18-year-old daughter DVT history cholecystectomy)
Allergies / Home Medications
Allergies reflects when Allergies were last updated in [employer].
Home Medications with original date entered in [employer]
Allergy/Medication List:
Allergies
Allergy/AdvReac Type Severity Reaction Status Date / Time
No Known Allergies Allergy Verified 02/13/24 15:20
Home Medications
alfuzosin 10 mg tablet,extended release 24 hr 10 mg PO HS 02/07/24
atorvastatin 20 mg tablet 20 mg PO HS 02/07/24
fluoxetine 40 mg capsule 40 mg PO DAILY 02/07/24
gabapentin 300 mg capsule 300 mg PO BID 02/07/24
levothyroxine 50 mcg tablet 50 mcg PO DAILY 02/07/24
losartan 100 mg-hydrochlorothiazide 25 mg tablet 1 tab PO DAILY 02/07/24
amoxicillin 875 mg-potassium clavulanate 125 mg tablet 1 tab PO BID 02/08/24
aspirin 81 mg tablet,delayed release 81 mg PO DAILY 02/08/24
pantoprazole 40 mg tablet,delayed release (Protonix) 40 mg PO DAILY #30 tabs 02/09/24
Review of Systems
-
History Source: Patient and Family ( at bedside)
A 12 point ROS was completed and negative except as noted: Yes
Constitutional: Reports Fever (Reported 101.1F this a.m.); Denies Chills
EENT: Denies Sore Throat or Runny Nose
Respiratory: Reports Trouble Breathing (Back pain with inspiration); Denies Cough
Cardiac: Denies Chest Pain, Diaphoresis, Palpitations or Syncope
Abdomen/GI: Denies Abdominal Pain, Nausea, Vomiting, Diarrhea, Constipated, Bloody Stools or Black Stools
: Denies Dysuria, Frequency, Flank Pain, Incontinence or Difficulty Voiding
Musculoskeletal: Denies Joint Pain or Edema
Skin: Denies Itching or Rash
Neurological: Denies Dizzy, Headache, Weakness or Numbness
Endocrine: Reports No Symptoms
Hematologic/Lymphatic: Reports No Symptoms
Psych: Reports Calm
Physical Exam
Vital Signs
Vital Signs
Temp Pulse Resp BP Pulse Ox
98.5 F 69 18 111/64 92
02/13/24 15:17 02/13/24 21:14 02/13/24 21:14 02/13/24 21:14 02/13/24 21:14
Physical Exam
General: Conversant, Pain and Fever; No Chills
HEENT: NormoCephalic, Anicteric, Moist mucous membranes, PERRLA, [place] Conjunctivae, No Ptosis and Neck Nontender
Respiratory: Clear and Other (Point tenderness mid thoracic paraspinal muscles left and right); No Wheezes, Rales or Rhonchi
Cardiac: S1/S2 and Regular Rhythm; No Murmur, Rub, Gallop or Peripheral Edema
Breast: Deferred by me
GI: Soft, Non Tender, Non Distended, Normal Bowel Sounds and No Hepatosplenomegaly
Rectal: Deferred by Provider
Genito-urinary: Deferred by me
Musculoskeletal: No Clubbing, No Cyanosis and No Edema
Skin: Warm and Dry; No Rash
Neuro: AO x 3, No Motor Deficits, Nonfocal/grossly intact and No Sensory Deficits; No Slurred Speech, Facial Droop or Tremors
Psych: Calm
Laboratory Results
-
02/13/24 15:31
02/13/24 15:31
Laboratory Results
Total Bilirubin 1.0 mg/dl (0.2-1.3) 02/13/24 15:31
AST 32 U/L (17-59) 02/13/24 15:31
ALT 42 U/L (0-50) 02/13/24 15:31
Alkaline Phosphatase 55 U/L (38-126) 02/13/24 15:31
Lipase 68 U/L (23-300) 02/13/24 15:31
Data Reviewed
-
CT Scan: Report Reviewed by me
Lab Data: Labs Reviewed by me
Impression/Plan
-
Impression/plan:
Admit to telemetry
#Acute upper back pain with inspiration/fever 2/2 Pulmonary Embolism subsegmental posterior medial left lower lobe pulmonary artery branch vessel
Recent 3-day admission, daughter age 18 history DVT unknown source
-IV Dilaudid given in ER
-Continue Dilaudid as needed severe pain, Percocet moderate pain
-IV Zofran as needed
-Tylenol as needed fever
-Ultrasound bilateral lower legs
-IV heparin drip per protocol
-Consult PULM
-Follow CBC, CMP
Per CT report: Nonopacification of a subsegmental posterior medial left lower lobe pulmonary artery branch vessel concerning for small subsegmental pulmonary artery embolus exam is
moderately limited due to motion artifact. Atherosclerosis and CAD. Small right pleural effusion. Mild dependent atelectasis at lung bases bilaterally.
Calcified granuloma right upper lobe.
Moderately distended gallbladder similar to prior exam no Raul cholecystic inflammation
Diverticulosis no bowel or renal obstruction
Bilateral renal cysts
Enlarged prostate
Degenerative changes in the spine
#Recent duodenitis/gastritis
-Status post EGD on 02/09/2024 showing duodenitis/gastritis
Continue daily PPI Protonix 40 mg
-Patient has 4-1/2 days left of Augmentin will continue
CXR:
1.Mild subpleural scarring and subsegmental atelectasis in the basilar left lower lobe and lingula.
2. Mild elevation of the right hemidiaphragm.
3. DISH throughout the thoracic spine.
#Recent acute sinusitis
Completed course of Augmentin has 4 1/2 days left will continue
#HTN�benign
BP 111/64
-Continue losartan/HCTZ
#HLD
-Continue atorvastatin 20 mg at bedtime
#Depression
-Continue fluoxetine, nortriptyline
#BPH
-Continue alfuzosin
#Hypothyroidism
Continue levothyroxine 50 mcg p.o. daily
DVT prophylaxis
IV gtt
Full code
--- NOTE | 2024-02-13 22:24 | W.PN.UPDATE ---
Update Note
Progress Note Update
This note serves as an addendum to the H&P by in home nanny CONNER
Theresa MORGAN
HPI
63M discharged from [facility] 4 days ago on 02/08/2025 secondary to duodenitis/gastritis
Also DC'd on ral Augmentin on for sinus infection and had 10 days remaining.
Seen at ER
- presenting with upper back pain with inspiration and fever.
- Bilateral along the upper mid thoracic paraspinal muscles.
PHX : HX of HTN, HLD, hypothyroidism, depression, BPH
Vital Signs
Temp Pulse Resp BP Pulse Ox
98.5 F 69 18 111/64 92
02/13/24 15:17 02/13/24 21:14 02/13/24 21:14 02/13/24 21:14 02/13/24 21:14
PE
Gen: not toxic
Respiratory: Clear , Point tenderness mid thoracic paraspinal muscles left and right No Wheezes, Rales or Rhonchi
Cardiac: S1/S2 and Regular Rhythm; No Murmur, Rub, Gallop or Peripheral Edema
Data
Abnormal Lab Results
02/13/24
15:31
WBC 11.1 H
RBC 4.00 L
Hgb 12.9 L
Hct 36.9 L
MCH 32.3 H
Absolute Neuts (auto) 9.0 H
Absolute Monos (auto) 0.7 H
Neutrophils % 81.8 H
Lymphocytes % 10.8 L
Glucose 131 H
CXR
1. Mild subpleural scarring and subsegmental atelectasis in the basilar left lower lobe and lingula.
2. Mild elevation of the right hemidiaphragm.
3. DISH throughout the thoracic spine.
CTA PE protocol :
limited exam due to motion artifact
concerning for subsegmental small PE
ASSESSMENT & PLAN
Presumed subsegmental PE
Pleuritic type acute upper back pain and fever ( ? non infectious ) - Not sure fever and pleurisy can be explained by presumed small PE
- Narcotic analgesia PRN
- Empiric Heparin gtt
- Tylenol as needed fever
- US bilateral lower legs
- Pul consult
DVT Px: on Heparin gtt
Full code
IP TLM
--- NOTE | 2024-02-13 22:48 | ED.GENMED ---
History of Present Illness
General
Chief Complaint: Fever
Source: patient and spouse
Exam Limitations: none
Time Seen by Provider: 02/13/24 19:02
History of Present Illness
History of Present Illness:
Patient with a recent admission for possible gallbladder disease. However this workup was unremarkable. Ended up being diagnosed with gastritis. Has been home for 4 days. However yesterday developed fever to 101 and diffuse upper back pain.
Pleuritic in nature. No shortness of breath. No distal numbness tingling or weakness. No significant abdominal pain.
Past History
Past History
ED Past Medical History: HTN, Hypercholesterolemia, Hypothyroidism and Other (depression)
ED Past Surgical History: None (lamienctomy)
Social History
Tobacco: Non-smoker
Alcohol: Occasional
Drug: None
Personal:
Living: with family
Family History
Family History: CAD (father cad in 80s) and Other
Review of Systems
Review of Systems
All Other Systems: Not applicable
Constitutional: Reports fever
Respiratory: Denies cough or hemoptysis
Cardiac: Denies chest pain
Phy Exam
Physical Exam
Physical Exam:
GENERAL: Alert and oriented in no apparent distress. But uncomfortable and and clearly in pain with attempted lying down flat
EYE: Orbits normal.
NECK: Supple, no significant adenopathy.
ENT: Pharynx without erythema
CARDIAC: Regular rate and rhythm without any obvious murmurs.
LUNGS: Clear breath sounds,normal
ABDOMEN: Soft, mild diffuse tenderness. No rebound or guarding no mass or hernia
NEUROLOGICAL: Alert and oriented , grossly non-focal
SKIN: Warm and dry, no rash or lesion, no discoloration, skin intact.
MUSCULOSKELETAL: No edema,no deformity.Good color
PSYCH: Normal and appropriate interaction.
Course
Orders/Labs/Results
Orders:
Orders
02/13/24 15:21
Electrocardiogram (*1) Urgent
Reason for Study: Shortness of Breath
EKG- Treatment ONCE
CXR2 [CR Chest - 2 Views ] Urgent
Comment:
Reason For Exam: SOB, pain with inspiration
02/13/24 15:31
CMP [Comprehensive Metabolic Panel] Urgent
COVID-19 Antigen Urgent
Source: Nasal Swab
Complete Blood Count/With Diff Urgent
Lipase Urgent
Comment: ADD ON
Influenza A+B Rapid Molecular Urgent
ANASTASIA Source: Nasal Swab
Specimen Description:
02/13/24 19:10
Add On- LAB Urgent
Tests Added?: lipase
02/13/24 19:11
CT Pe/abd/pel W Urgent
Reason For Exam: Mid back pain/abdominal pain
IV Insert/Care/Rem.- Treatment PRN
0.9% Sodium Chloride 500 ml [Nss] 500 ml IV BOLUS
HYDROmorphone [Dilaudid] 0.5 mg IV NOW STA
Ondansetron Injectable [Zofran] 4 mg IV NOW STA
02/13/24 19:13
Urinalysis Reflex To Culture Urgent
Date Specimen was Collected: 02/13/24
Time Specimen was Collected: 19:30
02/13/24 20:20
HYDROmorphone [Dilaudid] 0.5 mg IV NOW STA
02/13/24 22:00
Admit/Transfer Patient As Directed
Co-Sign Provider:
Level of Care: Inpatient admission
Assign to:: Telemetry
Physician / Group: aurelio painting
Diagnosis: back pain 2/2 to PE and right effusion
Reason for Telemetry: Arrhythmia
Date to Stop Telemetry: 02/16/24
Time to Stop Telemetry: 11:00
Reason for Hospitalization: back pain 2/2 to PE and right effusion
Expected length of stay greater than two midnights?: Yes
ELOS- Estimated Length of Stay in days: 3
I certify the patient meets the requirements for IP care: Yes
Code Status As Directed
Resuscitation Status: Full Code
Flush (0.9% Sodium Chloride) [Flush (Nss)] See Dose Instructions IV PER PROTOCOL
02/13/24 22:05
PRN Pain Medication Management As Directed
May give lesser potent ordered pain med per pt: Yes
preference::
Protocol:: Medication orders for pain may be administered in a
manner that supports deferring to patient preference
when the pt is:
- Requesting an ordered lesser potent pain medication.
Least to most potent pain medications are defined
as: acetaminophen < NSAID < tramadol < opioids
(morphine, oxycodone, hydromorphone).
- Requesting a lesser dose of the same medication IF
ORDERED.
- Requesting a less intrusive route of administration
if both routes are prescribed by the provider (PO <
IV).
02/13/24 22:06
Heparin 6,900 units IV NOW STA
02/13/24 22:11
Complete Blood Count/No Diff Urgent
Comment: Obtain baseline before beginning heparin infusion if not already collected
PTT Urgent
Comment: Obtain baseline before beginning heparin infusion if not already collected
Heparin Protocol- PTT Orders As Directed
PTT per Heparin protocol: -Obtain CBC and baseline PTT - if not already collected.
-Obtain PTT 6 hours from start of infusion. Then, every 6 hours until 2 consecutive
PTT's are therapeutic. Then, PTT Daily.
-With each rate change, obtain PTT every 6 hours until 2 consecutive PTT's are
therapeutic. Then, PTT Daily.
Notify MD As Directed
Notify physician if: PTT is greater than or equal to 200.
02/13/24 22:15
Heparin 86530 Units/250 ml 25,000 units in 250 ml IV PER PROTOCOL
Weight to be used for heparin protocol in kilograms (kg):: 85.9
Protocol:: DVT/PE
PTT Goal Range to be used:: PTT 73 to 111 seconds
Order type:: Initial
INITIAL Infusion Dose (UNITS/KG/hr) & then follow protocol:: 18 units/kg/hr
Infusion Dose in UNITS/hr & then follow protocol (UNITS/hr):: 1,500
INFUSION RATE in mL/hr & then follow protocol (mL/hr):: 15
For DVT/PE algorithm, re-bolus for low PTT?: Yes
PTT less than or equal to 64 seconds:: Re-bolus 80 units/kg (max 10,000units). Increase by 300 units/hr
(+ 3mL/hr)
PTT 64.1 to 72.9 seconds:: Re-bolus 40 units/kg (max 5,000 units). Increase by 200 units/hr
(+ 2mL/hr)
PTT 73 to 111 seconds:: Target Range. No change in rate.
PTT 111.1 to 130.9 seconds:: Decrease rate by 200 units/hr (- 2 mL/hr)
PTT 131 to 199.9 seconds:: HOLD for 1 hr. Then decrease by 300 units/hr (- 3mL/hr)
PTT greater than or equal to 200 seconds:: HOLD for 2 hrs & Notify Provider. Then decrease by 300 units/hr
(- 3mL/hr)
Lab follow-up:: Each change, PTT q6h until 2 consecutive are therapeutic. Then
PTT daily.
02/15/24 06:00
Complete Blood Count/No Diff Q2D
Comment: Notify if platelet count is <130,000 or decreases by 50% from baseline
02/16/24 11:00
DC Protocol for Telemetry ONCE
02/17/24 06:00
Complete Blood Count/No Diff Q2D
Comment: Notify MD if platelet count is <130,000 or decreases by 50% from baseline
02/19/24 06:00
Complete Blood Count/No Diff Q2D
Comment: Notify MD if platelet count is <130,000 or decreases by 50% from baseline
02/21/24 06:00
Complete Blood Count/No Diff Q2D
Comment: Notify MD if platelet count is <130,000 or decreases by 50% from baseline
02/23/24 06:00
Complete Blood Count/No Diff Q2D
Comment: Notify MD if platelet count is <130,000 or decreases by 50% from baseline
02/25/24 06:00
Complete Blood Count/No Diff Q2D
Comment: Notify MD if platelet count is <130,000 or decreases by 50% from baseline
02/27/24 06:00
Complete Blood Count/No Diff Q2D
Comment: Notify MD if platelet count is <130,000 or decreases by 50% from baseline
02/29/24 06:00
Complete Blood Count/No Diff Q2D
Comment: Notify MD if platelet count is <130,000 or decreases by 50% from baseline
Abnormal Lab Results
02/13/24
15:31
WBC 11.1 H 10^3/uL
(4.8-10.8)
RBC 4.00 L 10^6/uL
(4.70-6.10)
Hgb 12.9 L g/dL
(13.0-18.0)
Hct 36.9 L %
(39.0-52.0)
MCH 32.3 H pg
(27.0-31.0)
Absolute Neuts (auto) 9.0 H 10^3/uL
(1.4-6.5)
Absolute Monos (auto) 0.7 H 10^3/uL
(0.1-0.6)
Neutrophils % 81.8 H %
(42.2-75.2)
Lymphocytes % 10.8 L %
(20.5-51.1)
Glucose 131 H mg/dl
(70-99)
02/13/24 15:31
Vital Signs
Initial and Last Documented VS:
Initial Vital Signs
Temp Pulse Resp BP Pulse Ox
98.5 F 84 18 105/76 98
02/13/24 15:17 02/13/24 15:17 02/13/24 15:17 02/13/24 15:17 02/13/24 15:17
Last Documented Vital Signs
Temp Pulse Resp BP Pulse Ox
98.5 F 69 18 111/64 92
02/13/24 15:17 02/13/24 21:14 02/13/24 21:14 02/13/24 21:14 02/13/24 21:14
*Radiology
Radiology exam reviewed: radiology read reviewed (CT scan shows a small subsegmental pulmonary emboli right lower lobe. Small right pleural effusion. Atelectasis.)
*EKG
Interpreted by ED Provider?: Yes
Interpretation: abnormal
Comparison EKG: changes noted
Heart Rate: 77
Rate: normal
Rhythm: sinus
[place]: normal axis
Interval: normal interval
QRS Pattern: normal QRS
Ischemia: non-specific ST changes
*Critical Care Note
Total Time (30-74mins, 75-104mins- exclusive of procedures): Not Applicable
Data Reviewed
Review of Other/Old Records Reveals: Labs, Records, Radiology Studies and Testing
Update Note
Update Note:
No clear explanation for patient's symptoms. I do not think this possible subsegmental PE explains the diffuse back pain and fever. He does have atelectasis in both lung bases and small right pleural effusion. Nothing else to explain his
symptoms. However given this conglomerate of symptoms warrants further inpatient care and management
ED Attending Note
-
Portions of this chart may have been created with voice recognition software.� Occasional wrong word or��sound alike� substitutions may have occurred due to the inherent limitations of voice recognition software.
Discharge Plan
Departure
Patient Disposition: Admit
Date of Disposition: 02/13/24
Time of Disposition: 21:27
Presentation/result/management discussed w/ accepting MD/DO: Hospitalist
Discharge Problem:
Diffuse mid back pain, Fever, Possible subsegmental pulmonary emboli
Interventions
Interventions:
*Risk Screen - Suicide Last Done: 02/13/24 15:17
*General Assessment Last Done: 02/13/24 15:17
ED- Fall Risk Assessment Last Done: 02/13/24 20:11
*ED COVID-19 Vaccine History Last Done: 02/13/24 15:17
*Nursing Disposition Last Done: 02/13/24 22:45
ED- Neurological Assessment Last Done: 02/13/24 20:11
ED-Skin Assessment Last Done: 02/13/24 20:11
Discharge Date and Time
Discharge Date/Time: 02/13/24 22:46
[2024-02-13 22:50] VITALS: BP 126/75; BMI 30.1
[2024-02-13 23:26] LABS: Hematocrit 35.3 % (39.0-52.0); Hemoglobin 12.3 g/dL (13.0-18.0); Mean Corp Hgb Conc. 34.8 g/dL (33.0-37.0); Mean Corpuscular Hgb 32.4 pg (27.0-31.0); Mean Corpuscular Volume 92.9 fL (80.0-94.0); Mean Platelet Volume 10.2 fL (7.4-10.4); Platelet Count 165 10^3/uL (130-400); Red Cell Dist. Width 12.2 % (11.5-14.5); White Blood Cell Count 9.9 10^3/uL (4.8-10.8)
[2024-02-13] MEDS: FLOMAX 0.4 MG PO (23:28)
[2024-02-13 23:31] LABS: APTT 35.8 Sec (23.4-35.0)
[2024-02-13] MEDS: HEPARIN 6900 UNITS IV (23:42)
[2024-02-13] MEDS: HEPARIN 25000 UNITS/250 ML IV (23:45)
[2024-02-13] MEDS: TYLENOL 650 MG PO (23:52)
[2024-02-13] MEDS: ROXICODONE 5 MG PO (23:53)
[2024-02-14 03:40] VITALS: BP 119/65
[2024-02-14] MEDS: SYNTHROID 50 MCG PO (05:09)
[2024-02-14 06:08] LABS: % Basophils 0.2 % (0-2); % Immature Granulocytes 0.3 % (0-0.5); % Lymphocytes 16.6 % (20.5-51.1); % Monocytes 8.2 % (1.7-9.3); % Neutrophils 73.7 % (42.2-75.2); Absolute Eosinophils 0.1 10^3/uL (0-0.7); Absolute Lymphocytes 1.4 10^3/uL (1.2-3.4); Absolute Monocytes 0.7 10^3/uL (0.1-0.6); Absolute Neutrophils 6.4 10^3/uL (1.4-6.5); Hemoglobin 12.6 g/dL (13.0-18.0); Mean Corp Hgb Conc. 34.1 g/dL (33.0-37.0); Mean Corpuscular Hgb 31.9 pg (27.0-31.0); Mean Corpuscular Volume 93.7 fL (80.0-94.0); Nucleated Red Blood Cells % 0 % (-); Platelet Count 159 10^3/uL (130-400); Red Blood Cell Count 3.95 10^6/uL (4.70-6.10); Red Cell Dist. Width 12.1 % (11.5-14.5); White Blood Cell Count 8.6 10^3/uL (4.8-10.8)
[2024-02-14] MEDS: TYLENOL 650 MG PO ×2 (06:27→20:05)
[2024-02-14] MEDS: ROXICODONE 5 MG PO ×2 (06:27→20:05)
[2024-02-14 06:51] LABS: APTT > 200 Sec (23.4-35.0)
[2024-02-14 07:29] LABS: ALT (SGPT) 37 U/L (0-50); AST (SGOT) 28 U/L (17-59); Albumin 3.8 g/dl (3.5-5.0); Alkaline Phosphatase 51 U/L (38-126); Blood Urea Nitrogen 12 mg/dl (9-20); Calcium 8.8 mg/dl (8.4-10.2); Carbon Dioxide 31 mmol/L (22-30); Chloride 98 mmol/L (98-107); Estimated Creatinine Clearance 109 ml/min; Glucose 98 mg/dl (70-99); Sodium 137 mmol/L (135-145); Total Bilirubin 0.9 mg/dl (0.2-1.3); Total Protein 6.6 g/dl (6.3-8.2); eGFR > 60.00
[2024-02-14 07:55] VITALS: BP 118/68
[2024-02-14] MEDS: NEURONTIN 300 MG PO ×2 (08:41→20:05)
[2024-02-14] MEDS: AUGMENTIN 875 MG/125 MG 1 TABLET PO ×2 (08:43→20:06)
[2024-02-14] MEDS: PROZAC 40 MG PO (08:43)
[2024-02-14] MEDS: HYZAAR 100-25 TABLET 1 TAB PO (08:43)
[2024-02-14] MEDS: PROTONIX 40 MG PO (08:43)
[2024-02-14 11:30] VITALS: BP 111/64
[2024-02-14] MEDS: DILAUDID 1 MG IV ×2 (11:46→17:58)
--- NOTE | 2024-02-14 14:09 | W.PN.HOSP.TC ---
Today's Communication/Plan
-
Venous dopplers and possible repeat CT-PE study tomorrow if negative dopplers
IV Heparin for now
continue prior Augmentin and regular diet
Assessment / Plan
Assessment / Plan
assessment:
Suspected acute PE
- fever, pleuritic chest/back pain, recent hospitalization
- CT: Small filling defect within a subsegmental pulmonary artery within the left lower lobe. This is felt to most likely be artifactual, related to respiratory motion artifact, however small subsegmental pulmonary embolism is not completely
excluded.
- d/w Dr. Terrell radiology; will check venous dopplers today and if negative, can repeat CT-PE study Thursday for better diagnostic yield
- for now will continue IV Heparin drip; requires intensive monitoring of PTTs
- pain control
recent admission for Acute epigastric pain/gastritis
- CT: Diffuse gastric wall thickening which can be seen with gastritis. Mild colonic stool burden. The gallbladder is mildly distended without CT findings suggestive of acute cholecystitis and can be seen with fasting state
- US: Relative prominent gallbladder containing stones and sludge with top normal gallbladder wall. Negative sonographic Ruby's sign. No findings to suggest biliary tract dilatation.
- HIDA: No scintigraphic evidence of cystic duct duct obstruction.
- GS evaluated, no surgical intervention
- s/p EGD 02/08: duodenitis and gastritis. Biopsies pending. PPI daily per GI
- stop NSAIDs
- continue regulat diet
- continue 10 day empiric Augmentin course, ending 02/19/23
Recent acute sinusitis
- treated with Augmentin course previously
Essential hypertension
- continue losartan/hydrochlorothiazide
Hyperlipidemia
- continue statin
Hypothyroidism
- continue levothyroxine
Depression
- continue fluoxetine
- continue nortriptyline
BPH
- resume alfuzosin
DVT ppx: IV heparin
Code: Full
Anticipated Discharge: > 48 hours
Subjective/Interval History
-
Date of Service: February 14, 2024
reports pleuritic chest pain and back pain, swallow breaths
denies any GI Complaints
Objective Data
-
Labs:
Laboratory Results
02/14/24 02/14/24
05:57 15:00
WBC 8.6
Hgb 12.6 L
Hct 37.0 L
Plt Count 159
APTT > 200 H* Pending
Sodium 137
Potassium 4.0
Chloride 98
Carbon Dioxide 31 H
BUN 12
Creatinine 0.8
Glucose 98
Calcium 8.8
Total Bilirubin 0.9
AST 28
ALT 37
Alkaline Phosphatase 51
Vital Signs:
Vital Signs
Temp Pulse Resp BP Pulse Ox
98.6 F 69 16 111/64 92
02/14/24 11:30 02/14/24 11:30 02/14/24 11:30 02/14/24 11:30 02/14/24 11:30
I&O
02/13/24 02/14/24 02/15/24
06:59 06:59 06:59
Intake Total 90 / 90
Output Total 500 / 500
Balance 90 / 90 -500 / -500
Physical Exam
-
General: No Apparent Distress
HEENT: Normocephalic and Atraumatic
Respiratory: Negative Wheezes
Cardiac: Regular Rhythm and S1/S2
GI: Soft
Genito-urinary: No Costovertebral Tender
Musculoskeletal: No Edema
Neuro: AO x 3
Psych: Calm
Data Reviewed
-
Total Time Spent with Patient (in minutes): 51
Labs: Labs Reviewed by me
[2024-02-14 15:45] LABS: Urine Albumin Trace (Neg - Trace); Urine Bilirubin Negative (Negative); Urine Character Slightly Cloudy (Clear); Urine Color Yellow; Urine Glucose Negative (Negative); Urine Ketone Negative (Negative); Urine Leukocyte Negative (Negative); Urine Nitrite Negative (Negative); Urine Occult Blood Negative (Negative); Urine Urobilinogen Negative (Neg - 1+)
[2024-02-14 15:55] LABS: APTT 81.3 Sec (23.4-35.0)
[2024-02-14 17:00] VITALS: BP 135/74
[2024-02-14 19:46] VITALS: BP 129/76
[2024-02-14] MEDS: FLOMAX 0.4 MG PO (21:59)
[2024-02-14] MEDS: LIPITOR 40 MG PO (21:59)
[2024-02-14 22:07] LABS: APTT 91.6 Sec (23.4-35.0)
[2024-02-14 23:50] VITALS: BP 127/73
[2024-02-15] MEDS: HEPARIN 25000 UNITS/250 ML IV ×2 (02:41→16:47)
[2024-02-15 03:36] VITALS: BP 119/66
[2024-02-15] MEDS: SYNTHROID 50 MCG PO (05:26)
[2024-02-15] MEDS: ROXICODONE 5 MG PO ×3 (05:31→15:40)
[2024-02-15] MEDS: TYLENOL 650 MG PO (05:32)
[2024-02-15 06:56] VITALS: BP 114/66
[2024-02-15 07:19] LABS: % Basophils 0.2 % (0-2); % Eosinophils 2.1 % (0-6); % Immature Granulocytes 0.3 % (0-0.5); % Neutrophils 75.4 % (42.2-75.2); Absolute Eosinophils 0.2 10^3/uL (0-0.7); Absolute Lymphocytes 1.1 10^3/uL (1.2-3.4); Absolute Monocytes 0.8 10^3/uL (0.1-0.6); Absolute Neutrophils 6.5 10^3/uL (1.4-6.5); Hemoglobin 12.1 g/dL (13.0-18.0); Mean Corp Hgb Conc. 35.6 g/dL (33.0-37.0); Mean Corpuscular Hgb 32.5 pg (27.0-31.0); Mean Corpuscular Volume 91.4 fL (80.0-94.0); Mean Platelet Volume 9.8 fL (7.4-10.4); Nucleated Red Blood Cells % 0 % (-); Platelet Count 177 10^3/uL (130-400); Red Blood Cell Count 3.72 10^6/uL (4.70-6.10); White Blood Cell Count 8.7 10^3/uL (4.8-10.8)
[2024-02-15 07:28] LABS: APTT 108.8 Sec (23.4-35.0)
[2024-02-15 07:57] LABS: ALT (SGPT) 39 U/L (0-50); AST (SGOT) 25 U/L (17-59); Albumin 3.6 g/dl (3.5-5.0); Alkaline Phosphatase 58 U/L (38-126); Blood Urea Nitrogen 14 mg/dl (9-20); Carbon Dioxide 27 mmol/L (22-30); Chloride 96 mmol/L (98-107); Estimated Creatinine Clearance 109 ml/min; Glucose 109 mg/dl (70-99); Potassium 3.7 mmol/L (3.5-5.1); Sodium 131 mmol/L (135-145); Total Bilirubin 0.7 mg/dl (0.2-1.3); Total Protein 6.5 g/dl (6.3-8.2); eGFR > 60.00
[2024-02-15] MEDS: HYZAAR 100-25 TABLET 1 TAB PO (08:33)
[2024-02-15] MEDS: AUGMENTIN 875 MG/125 MG 1 TABLET PO ×2 (08:33→21:18)
[2024-02-15] MEDS: PROZAC 40 MG PO (08:34)
[2024-02-15] MEDS: PROTONIX 40 MG PO (08:35)
[2024-02-15] MEDS: NEURONTIN 300 MG PO ×2 (08:35→21:17)
[2024-02-15 08:56] LABS: NT-proBNP < 20.0 pg/ml; Troponin I < 0.012 ng/ml
--- NOTE | 2024-02-15 08:59 | CON.ONC ---
Addendum entered and electronically signed by Hannah Desouza MD 02/15/24 14:20:
Pt main complaint is back pain, across back, which has not improved since admission.
Question of whether there is actually clot present.
D-dimer 1.15.
Plan as per resident and [employer]: repeat CTA chest in AM to re-eval for clot, before we commit him to 3-6 months' anticoagulation.
Eval for other possible causes of back pain.
Thank you for consult, will follow along with you.
Original Note:
Impression
Impression
possible PE vs artifact
possible b/l LE US showed b/l acute nonocclusive DVT vs Very slow venous blood flow
Plan
Plan
check Ddimer, if negative then acute VTE is unlikely
if ddimer is not negative then would proceed with repeat CTA chest in am if renal function stable.
If VTE confirmed then 3 months DOAC at discharge, would consider provoked with recent hospitalization. Thrombophilia evaluation could be pursued in OP follow up since daughter also had DVT
Patient History
History of Present Illness
63yo M who presented with upper back pain with inspiration and fever. He reports Tmax 101.1F 02/12 with mid thoracic back pain in the muscles. He was recently hospitalized 02/06-02/09/2024 that evaluation with HIDA and EGD showed duodenitis and
gastritis for which he was placed on PPI. He was also treated for sinus infection with a course of abx. Initial evaluation showed WBC 11.1, Hgb 12.9, MCV 92.3, platelet count 132,000, and CMP without significant abnormalities. COVID negative, UA
without pyuria. CTA chest showed a small filling defect within a subsegmental pulmonary artery within the left lower lobe. This is felt to most likely be artifactual, related to respiratory motion artifact, however small subsegmental pulmonary
embolism is not completely excluded. His b/l LE US showed suspected acute nonocclusive deep venous thrombosis in both lower extremities. Very slow venous blood flow is an alternative diagnostic possibility. He has been admitted and started on a
heparin gtt.
Afebrile, no hyoxia or hypotension
Past-Medical/Surgical History
PMH hypothyroid, HTN, neutropenia, HLD, depression, BPH
PSH laminectomy, wisdom teeth
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 Denies recreational drugs
Family sister and father with neutropenia, mother colon cancer, daughter LLE DVT at 28 unclear if provoked
Patient Medication
�Medication �Instructions �Recorded �Confirmed �Last Taken �Type
alfuzosin 10 mg tablet,extended 10 mg PO HS Urinary Issue 02/07/24 02/08/24 Unknown History
release 24 hr
atorvastatin 20 mg tablet 20 mg PO HS High Cholesterol 02/07/24 02/08/24 Unknown History
fluoxetine 40 mg capsule 40 mg PO DAILY Mental 02/07/24 02/08/24 Unknown History
Health/Anxiety
gabapentin 300 mg capsule 300 mg PO BID Neuropathic pain 02/07/24 02/08/24 Unknown History
levothyroxine 50 mcg tablet 50 mcg PO DAILY Thyroid 02/07/24 02/08/24 Unknown History
losartan 100 1 tab PO DAILY Blood Pressure 02/07/24 02/08/24 Unknown History
mg-hydrochlorothiazide 25 mg tablet
amoxicillin 875 mg-potassium 1 tab PO BID Infection 02/08/24 02/08/24 Unknown History
clavulanate 125 mg tablet
aspirin 81 mg tablet,delayed 81 mg PO DAILY Blood Clot 02/08/24 02/08/24 Unknown History
release Prevention/Tx
pantoprazole 40 mg tablet,delayed 40 mg PO DAILY #30 tabs 02/09/24 Unknown Rx
release (Protonix)
Active Medications
Generic Name Dose Route Start Last Admin
Trade Name Freq PRN Reason Stop Dose Admin
Acetaminophen 650 mg 02/13/24 22:51 02/15/24 05:32
Acetaminophen 325 Mg Tablet PO 03/12/24 22:50 650 mg
Q4HPRN PRN Administration
mild pain/WHIPPLE/temp> 100.4F
Amoxicillin/Clavulanate Potassium 1 tablet 02/14/24 08:00 02/15/24 08:33
Amoxicillin (875 Mg)/Clavulanate (125 Mg) Tablet PO 02/18/24 07:59 1 tablet
BID JHOANA Administration
Atorvastatin Calcium 40 mg 02/14/24 22:00 02/14/24 21:59
Atorvastatin (Lipitor) 40 Mg Tablet PO 03/13/24 21:59 40 mg
HS JHOANA Administration
Fluoxetine HCl 40 mg 02/14/24 08:00 02/15/24 08:34
Fluoxetine 20 Mg Capsule PO 03/13/24 07:59 40 mg
DAILY JHOANA Administration
Gabapentin 300 mg 02/14/24 08:00 02/15/24 08:35
Gabapentin 300 Mg Capsule PO 03/13/24 07:59 300 mg
BID JHOANA Administration
HCTZ/Losartan Potassium 1 tab 02/14/24 08:00 02/15/24 08:33
Losartan (100 Mg)/Hydrochlorothiazide (25 Mg) Tablet PO 03/13/24 07:59 1 tab
DAILY JHOANA Administration
Heparin Sodium 6,900 units 02/13/24 22:18
Heparin 80 Units/Kg Rebolus-Do Not Discard IV 03/12/24 22:17
PRN PRN
PTT < OR = 64 seconds
Heparin Sodium 3,400 units 02/13/24 22:18
Heparin 40 Units/Kg Rebolus-Do Not Discard IV 03/12/24 22:17
PRN PRN
PTT = 64.1 to 72.9 seconds
Hydromorphone HCl 1 mg 02/13/24 23:03 02/14/24 17:58
Hydromorphone 1 Mg/Ml Carpuject IV 02/27/24 23:02 1 mg
Q4HPRN PRN Administration
severe pain
Heparin Sodium 25,000 units in 250 mls @ 0 mls/hr 02/13/24 22:15 02/15/24 02:41
Heparin 54275 Units/250 Ml IV 250 mls
PER PROTOCOL JHOANA Administration
Protocol
Per Protocol
Levothyroxine Sodium 50 mcg 02/14/24 06:00 02/15/24 05:26
Levothyroxine 50 Mcg Tablet PO 03/13/24 05:59 50 mcg
DAILY@0600 JHOANA Administration
Oxycodone HCl 5 mg 02/13/24 22:51 02/15/24 05:31
Oxycodone 5 Mg Regular Release Tablet PO 02/27/24 22:50 5 mg
Q4HPRN PRN Administration
moderate pain
Pantoprazole Sodium 40 mg 02/14/24 08:00 02/15/24 08:35
Pantoprazole 40 Mg Delayed Release Tablet PO 03/13/24 07:59 40 mg
DAILY JHOANA Administration
Polyethylene Glycol 17 grams 02/13/24 22:51
Polyethylene Glycol Powder 17 Grams Packet PO 03/12/24 22:50
DAILYPRN PRN
constipation
Sodium Chloride 0 flush 02/13/24 22:00
Sodium Chloride 0.9% (Flush) Syringe IV 03/12/24 21:59
PER PROTOCOL JHOANA
Tamsulosin HCl 0.4 mg 02/13/24 23:30 02/14/24 21:59
Tamsulosin 0.4 Mg Capsule PO 03/12/24 23:29 0.4 mg
HS JHOANA Administration
Review of Systems
-
ROS notable for HPI, otherwise negative
Physical Exam
-
General: Well Developed and No Apparent Distress
HEENT: Moist Mucous Membranes; Negative Jaundice
Cardiology: Normal Sinus Rhythm
Pulmonary: Clear
GI: Soft
Extremities: Pulses Present; Negative Edema
Neurology: Non Focal
Skin: Warm
Psych: Calm
Labs
Lab Results
WBC 8.7 10^3/uL (4.8-10.8) 02/15/24 07:07
RBC 3.72 10^6/uL (4.70-6.10) L 02/15/24 07:07
Hgb 12.1 g/dL (13.0-18.0) L 02/15/24 07:07
Hct 34.0 % (39.0-52.0) L 02/15/24 07:07
MCV 91.4 fL (80.0-94.0) 02/15/24 07:07
MCH 32.5 pg (27.0-31.0) H 02/15/24 07:07
MCHC 35.6 g/dL (33.0-37.0) 02/15/24 07:07
RDW 12.0 % (11.5-14.5) 02/15/24 07:07
Plt Count 177 10^3/uL (130-400) 02/15/24 07:07
MPV 9.8 fL (7.4-10.4) 02/15/24 07:07
Abs Immat Gran (auto) 0.0 10^3/uL (0-0.05) 02/15/24 07:07
Absolute Neuts (auto) 6.5 10^3/uL (1.4-6.5) 02/15/24 07:07
Absolute Lymphs (auto) 1.1 10^3/uL (1.2-3.4) L 02/15/24 07:07
Absolute Monos (auto) 0.8 10^3/uL (0.1-0.6) H 02/15/24 07:07
Absolute Eos (auto) 0.2 10^3/uL (0-0.7) 02/15/24 07:07
Absolute Basos (auto) 0.0 10^3/uL (0-0.2) 02/15/24 07:07
Immature Gran % 0.3 % (0-0.5) 02/15/24 07:07
Neutrophils % 75.4 % (42.2-75.2) H 02/15/24 07:07
Lymphocytes % 13.0 % (20.5-51.1) L 02/15/24 07:07
Monocytes % 9.0 % (1.7-9.3) 02/15/24 07:07
Eosinophils % 2.1 % (0-6) 02/15/24 07:07
Basophils % 0.2 % (0-2) 02/15/24 07:07
Creatinine 0.8 mg/dL (0.7-1.3) 02/15/24 07:07
Vital Signs
Vital Signs
Temp Pulse Resp BP Pulse Ox
98.6 F 60 18 114/66 92
02/15/24 03:36 02/15/24 08:33 02/15/24 03:36 02/15/24 08:33 02/15/24 03:36
[2024-02-15 09:55] LABS: D-Dimer 1.15 ug/mlFEU (0.00-0.50)
--- NOTE | 2024-02-15 10:19 | W.PN.HOSP.TC ---
Today's Communication/Plan
-
continue IV Heparin
follow pulm and heme recs
Assessment / Plan
Assessment / Plan
assessment:
Suspected acute PE
- fever, pleuritic chest/back pain, recent hospitalization although no other provoking factors identified
- CT: Small filling defect within a subsegmental pulmonary artery within the left lower lobe. This is felt to most likely be artifactual, related to respiratory motion artifact, however small subsegmental pulmonary embolism is not completely
excluded.
- US: suspected acute nonocclusive deep venous thrombosis in the right popliteal, peroneal, and posterior tibial veins and suspected acute nonocclusive deep venous thrombosis in the left popliteal and posterior tibial veins
- elevated D-dimer noted
- trop and BNP sloan
- no indication for Echo
- continue IV Heparin drip; requires intensive monitoring of PTTs
- pain control with oxycodone
- Pulm and Hematology consults
recent admission for Acute epigastric pain/gastritis
- CT: Diffuse gastric wall thickening which can be seen with gastritis. Mild colonic stool burden. The gallbladder is mildly distended without CT findings suggestive of acute cholecystitis and can be seen with fasting state
- US: Relative prominent gallbladder containing stones and sludge with top normal gallbladder wall. Negative sonographic Ruby's sign. No findings to suggest biliary tract dilatation.
- HIDA: No scintigraphic evidence of cystic duct duct obstruction.
- GS evaluated, no surgical intervention
- s/p EGD 02/08: duodenitis and gastritis. Biopsies pending. PPI daily per GI
- stop NSAIDs
- continue regular diet
- continue 10 day empiric Augmentin course, ending 02/19/23
Recent acute sinusitis
- treated with Augmentin course previously
Essential hypertension
- continue losartan/hydrochlorothiazide
Hyperlipidemia
- continue statin
Hypothyroidism
- continue levothyroxine
Depression
- continue fluoxetine
- continue nortriptyline
BPH
- resume alfuzosin
DVT ppx: IV heparin
Code: Full
Anticipated Discharge: 24 - 48 hours
Subjective/Interval History
-
Date of Service: February 15, 2024
reports 07/19 pleuritic pain, improves with oxycodone
Objective Data
-
Labs:
Laboratory Results
02/15/24
07:07
WBC 8.7
Hgb 12.1 L
Hct 34.0 L
Plt Count 177
APTT 108.8 H
Sodium 131 L
Potassium 3.7
Chloride 96 L
Carbon Dioxide 27
BUN 14
Creatinine 0.8
Glucose 109 H
Calcium 9.0
Total Bilirubin 0.7
AST 25
ALT 39
Alkaline Phosphatase 58
Vital Signs:
Vital Signs
Temp Pulse Resp BP Pulse Ox
99 F 60 20 114/66 92
02/15/24 06:56 02/15/24 08:33 02/15/24 06:56 02/15/24 08:33 02/15/24 06:56
I&O
02/14/24 02/15/24 02/16/24
06:59 06:59 06:59
Intake Total 1092 / 1092
Output Total 1575 / 1575
Balance -483 / -483
Physical Exam
-
General: No Apparent Distress
HEENT: Normocephalic and Atraumatic
Respiratory: Negative Wheezes
Cardiac: Regular Rhythm and S1/S2
GI: Soft and Nontender
Genito-urinary: No Costovertebral Tender
Neuro: AO x 3
Psych: Calm
Data Reviewed
-
Total Time Spent with Patient (in minutes): 51
Labs: Labs Reviewed by me
--- NOTE | 2024-02-15 10:20 | CON.PUL ---
Consultation
Consultation Request
Date/Time Consultation Requested: 02/15/2024-7:30 AM
Date/Time Consultation Performed: 02/15/2024-8 AM
Requesting Provider: hospitalist
Performing Provider: Dr. Tao
Reason for Consultation: Pulm embolism
Medical History
-
Chief Complaint: Shortness of breath and back pain
History of Present Illness:
63-year-old male non-smoker recently hospitalized with abdominal issues for 2 days presented with pleuritic upper back pain as well as fevers found to have DVT and probable pulm embolism-pulmonary consulted for pulmonary embolism 02/15/2024. Patient
states that recently he was hospitalized for 2 days but other than that he was not sedentary, did not have long car ride, plane flight or other risks for DVT. Patient states that his daughter does have a DVT. No other family history. He currently
continues to complain of some pleuritic back pain but no shortness of breath at rest, chest congestion, productive cough, abdominal pain, reflux, leg swelling or focal weakness.
Past Medical History
Past Medical History: None (Hypertension. Hyperlipidemia. Hypothyroid. Depression. Duodenitis and gastritis hospitalized 02/07/2024. Laminectomy. EGD 02/09/2024.)
Social History
Tobacco: Non-smoker
Alcohol: Occasional
Drug: None
Personal:
Living: With Family
Occupational Exposures: No known asbestos exposure
Environmental Exposures: No known tuberculosis exposure
Family History
Family History: Other (Daughter-DVT. Mother-lung cancer-smoker)
Allergies / Home Medications
Allergies
Allergy/AdvReac Type Severity Reaction Status Date / Time
No Known Allergies Allergy Verified 02/13/24 15:20
Home Medications
�Medication �Instructions �Recorded �Confirmed �Last Taken �Type
alfuzosin 10 mg tablet,extended 10 mg PO HS Urinary Issue 02/07/24 02/08/24 Unknown History
release 24 hr
atorvastatin 20 mg tablet 20 mg PO HS High Cholesterol 02/07/24 02/08/24 Unknown History
fluoxetine 40 mg capsule 40 mg PO DAILY Mental 02/07/24 02/08/24 Unknown History
Health/Anxiety
gabapentin 300 mg capsule 300 mg PO BID Neuropathic pain 02/07/24 02/08/24 Unknown History
levothyroxine 50 mcg tablet 50 mcg PO DAILY Thyroid 02/07/24 02/08/24 Unknown History
losartan 100 1 tab PO DAILY Blood Pressure 02/07/24 02/08/24 Unknown History
mg-hydrochlorothiazide 25 mg tablet
amoxicillin 875 mg-potassium 1 tab PO BID Infection 02/08/24 02/08/24 Unknown History
clavulanate 125 mg tablet
aspirin 81 mg tablet,delayed 81 mg PO DAILY Blood Clot 02/08/24 02/08/24 Unknown History
release Prevention/Tx
pantoprazole 40 mg tablet,delayed 40 mg PO DAILY #30 tabs 02/09/24 Unknown Rx
release (Protonix)
Review of Systems
-
Unable to Obtain full review of systems at this time due to: Other (Per HPI)
Vitals / Labs / Diagnostic Testing
Vital Signs
Temp Pulse Resp BP Pulse Ox
99 F 60 20 114/66 92
02/15/24 06:56 02/15/24 08:33 02/15/24 06:56 02/15/24 08:33 02/15/24 06:56
Lab Data
02/15/24 07:07
02/15/24 07:07
Laboratory Results
02/14/24 02/14/24 02/15/24
15:31 21:48 07:07
APTT 81.3 H 91.6 H 108.8 H
Microbiology
02/13/24 15:31 Nasal Swab Influenza Types A & B (RICH) - Final
Negative for Influenza A & B, NAAT
Negative results must be combined with clinical observations
and patient history.
Nucleic Acid Amplification test (NAAT)performed on the
[employer] platform.
Diagnostic Testing:
Physical Exam
-
Exam:
Well-nourished and well-developed in no apparent distress
HEENT-atraumatic, normocephalic
Neck-supple, no JVD, no bruit
Heart-regular rate and rhythm-no murmurs, rubs or gallops
Chest-clear to auscultation, no wheezes, crackles
Back-no tenderness
Abdomen-soft, nontender, nondistended, no hepatosplenomegaly
Extremities-no cyanosis, clubbing, edema and good peripheral pulses, negative Homans' sign
Integument-intact, no rashes, lesions or ecchymosis
Neurology-alert and oriented, nonfocal motor and sensory exam, no increased P2 or RV heave
Assessment
-
63-year-old male non-smoker recently hospitalized with abdominal issues for 2 days presented with pleuritic upper back pain as well as fevers found to have DVT and probable pulm embolism-pulmonary consulted for pulmonary embolism 02/15/2024.
Pulm embolism-possibly provoked though has family history
PESI-73, low risk, no evidence for right ventricular strain
Troponin negative, proBNP negative, elevated D-dimer
Pleurisy
DVT
Mild wrwqkp-wgchvvbolv-wokbmbtoqs 12.1
Mild hyponatremia
Mild hyperglycemia
Conditions present prior to admission:
Hypertension.
Hyperlipidemia.
Hypothyroid.
Depression.
Duodenitis and gastritis hospitalized 02/07/2024.
Laminectomy. EGD 02/09/2024.
Plan
Patient admitted with a diagnosis of pulmonary embolism and significant pleurisy
Supplemental oxygen as needed
Aspiration precautions
Incentive spirometry
CT chest personally reviewed-small subsegmental clot probable
Lower extremity ultrasound positive for acute DVT
Recommend eventual hypercoagulable workup-family history with daughter with DVT summarized above
Full PESI summarized above
Heparin drip or Lovenox 1 mg/kg every 12 hours
Convert to oral anticoagulant for minimum of 3-6 months
Reevaluate lower extremity ultrasounds and CT chest at that time to ensure clot resolution
Recommend eventual hypercoagulable workup with family history of DVT and probable minimally provoked clot-was hospitalized for 2 days with gastritis recently
Benefits and risks of thrombolytics therapy have been reviewed and risks outweigh the benefits in this patient without tachycardia, low PESI score, no hypotension, etc.
Bedrest �24 hours
DVT prophylaxis-on full anticoagulation
Early nutrition
Early mobilization
Outpatient pulmonary follow-up
Outpatient appropriate malignancy screening including colonoscopy and prostate exam
Diagnostic data:
Chest x-ray 02/07/2024-left basilar opacification likely atelectasis
Chest x-ray 03/05-mild subpleural scarring and subsegmental atelectasis basilar left lower lobe and lingula, mild elevation of the right hemidiaphragm
CT abdomen and pelvis 02/07/2024-diffuse gastric wall thickening consistent with gastritis, renal calculi 1.1 cm on the right and 8 mm on the left, gallbladder is mildly distended
CT abdomen and pelvis 02/13/24-no large filling defects within the main or subsegmental pulmonary arteries, left lower lobe nonopacification of small subsegmental branch, trace right pleural effusion, bilateral nephrolithiasis without hydronephrosis
Lower extremity ultrasound 02/14/2024-acute nonocclusive DVT both lower extremities
HIDA scan 02/08/2024-no evidence for cystic duct obstruction
Data Reviewed
-
EKG: Report reviewed by me
Radiology: Image personally visualized and interpreted and Report reviewed by me
CT Scan: Image personally visualized and interpreted and Report reviewed by me
Ultrasound: Report reviewed by me
Medical Tests (Nuc Med, Echo etc): Report reviewed by me
Labs: Labs reviewed by me
Old Records: Reviewed
Total Time Spent with Patient (in minutes): 55
--- NOTE | 2024-02-15 10:28 | PTCARENOTE ---
Received pt awake, alert, oriented, with c/o pain in center of back described as pin pricking pain. Pt medicated with PRN medications for pain. Maintaining RA O2 sats, lungs sound diminished throughout. NSR on monitor. Skin intact. Pt remains
therapeutic on Heparin drip. Plan of care reviewed with pt.
[2024-02-15 11:24] VITALS: BP 116/69
--- NOTE | 2024-02-15 15:26 | CM ---
Initial assessment completed. Pt had prev admission (02/06-02/08). Admitted for upper thoracic back pain.
Pt resides w/ spouse in multi-level home- 5 steps to enter the home
Pt is independent w/ ambulation. Denies DME for daily functioning
Denies SNF/VN/PT hx
Address, point of contact and insurance verified
PCP: Dr. De Jesus
[facility]
Currently on [facility]
Plan: Home; no needs anticipated
CM will cont to follow for d/c planning
[2024-02-15 15:28] VITALS: BP 104/58
[2024-02-15] MEDS: MIRALAX 17 GRAMS PO (15:48)
[2024-02-15 16:28] LABS: Absolute Neutrophils -Man Diff 6.9 10^3/uL (1.4-6.5); Band Neutrophils 1 % (0-3); Lymphocytes 11 % (20-51); Monocytes 6 % (2-9); Pathologist Reviewed Yes; Segmented Neutrophils 79 % (42-75)
[2024-02-15 16:29] LABS: Eosinophils 2 % (0-6); Normal RBC Morphology No; Ovalocytes Slight; Platelets Checked Yes; Tear Drop Red Blood Cells Slight; Total Cells Counted 100
[2024-02-15 19:41] VITALS: BP 111/71
[2024-02-15] MEDS: FLOMAX 0.4 MG PO (21:17)
[2024-02-15] MEDS: LIPITOR 40 MG PO (21:17)
[2024-02-15] MEDS: DILAUDID 1 MG IV (21:24)
[2024-02-15 23:55] VITALS: BP 115/71
[2024-02-16] MEDS: DILAUDID 1 MG IV (02:31)
[2024-02-16 03:59] VITALS: BP 118/67
[2024-02-16] MEDS: SYNTHROID 50 MCG PO (06:22)
[2024-02-16 08:32] VITALS: BP 118/76
[2024-02-16 08:47] LABS: % Basophils 0.4 % (0-2); % Eosinophils 2.8 % (0-6); % Immature Granulocytes 0.3 % (0-0.5); % Lymphocytes 20.1 % (20.5-51.1); % Monocytes 9.5 % (1.7-9.3); % Neutrophils 66.9 % (42.2-75.2); Absolute Eosinophils 0.2 10^3/uL (0-0.7); Absolute Lymphocytes 1.4 10^3/uL (1.2-3.4); Absolute Monocytes 0.7 10^3/uL (0.1-0.6); Absolute Neutrophils 4.7 10^3/uL (1.4-6.5); Hematocrit 32.6 % (39.0-52.0); Hemoglobin 11.4 g/dL (13.0-18.0); Mean Corpuscular Hgb 32.5 pg (27.0-31.0); Mean Corpuscular Volume 92.9 fL (80.0-94.0); Nucleated Red Blood Cells % 0 % (-); Platelet Count 221 10^3/uL (130-400); Red Blood Cell Count 3.51 10^6/uL (4.70-6.10); Red Cell Dist. Width 12.2 % (11.5-14.5)
[2024-02-16] MEDS: PROTONIX 40 MG PO (09:10)
[2024-02-16] MEDS: HYZAAR 100-25 TABLET 1 TAB PO (09:10)
[2024-02-16] MEDS: NEURONTIN 300 MG PO (09:10)
[2024-02-16] MEDS: PROZAC 40 MG PO (09:11)
[2024-02-16] MEDS: AUGMENTIN 875 MG/125 MG 1 TABLET PO (09:11)
--- NOTE | 2024-02-16 09:12 | W.PN.ONC ---
Today's Communication / Plan
-
Continue heparin for now
Await repeat chest CTA
If chest imaging negative for PE, will discuss w/ radiology add'l imaging options to confirm/refute DVT diagnosis
If VTE confirmed or not convincingly ruled out, would favor 3 months a/c, followed by outpatient heme f/u for thrombophilia testing based on family hx
Plan d/w patient, hospitalist and supervisor operations
Impression
Impression
pleuritic type chest pain, questionable small PE seen on CT chest
possible bilateral LE DVT, though exam and history negative for DVT
recent hospitalization with gastritis
family h/o DVT
Plan
Plan
Continue heparin for now
Await repeat chest CTA
If chest imaging negative for PE, will discuss w/ radiology add'l imaging options to confirm/refute DVT diagnosis
If VTE confirmed or not convincingly ruled out, would favor 3 months a/c, followed by outpatient heme f/u for thrombophilia testing based on family hx
Plan d/w patient, hospitalist and supervisor operations
Subjective/Objective
Subjective/Objective
Back pain has slightly improved. No GI symptoms, no bleeding on heparin.
Vital Signs:
Vital Signs
Temp Pulse Resp BP Pulse Ox
98.4 F 66 18 118/76 97
02/16/24 08:32 02/16/24 09:10 02/16/24 08:32 02/16/24 09:10 02/16/24 08:32
appears well
no conversational dyspnea
no LE edema, calf tenderness, erythema
Lab Results:
Laboratory Data
WBC 7.0 10^3/uL (4.8-10.8) 02/16/24 08:09
Hgb 11.4 g/dL (13.0-18.0) L 02/16/24 08:09
Plt Count 221 10^3/uL (130-400) D 02/16/24 08:09
APTT 108.8 Sec (23.4-35.0) H 02/15/24 07:07
eGFR > 60.00 02/15/24 07:07
[2024-02-16 09:15] LABS: ALT (SGPT) 74 U/L (0-50); AST (SGOT) 46 U/L (17-59); Albumin 3.6 g/dl (3.5-5.0); Alkaline Phosphatase 61 U/L (38-126); Blood Urea Nitrogen 14 mg/dl (9-20); Calcium 9.2 mg/dl (8.4-10.2); Carbon Dioxide 31 mmol/L (22-30); Chloride 93 mmol/L (98-107); Estimated Creatinine Clearance 97 ml/min; Glucose 100 mg/dl (70-99); Sodium 133 mmol/L (135-145); Total Bilirubin 0.6 mg/dl (0.2-1.3); Total Protein 6.6 g/dl (6.3-8.2); eGFR > 60.00
[2024-02-16 09:18] LABS: APTT 169.2 Sec (23.4-35.0)
[2024-02-16] MEDS: ROXICODONE 5 MG PO (09:31)
--- NOTE | 2024-02-16 09:33 | PTCARENOTE ---
PTT result back at 169.2, notified, Hep gtt held for 1 hour and will resume -300units. set to resume at 1025 at 900units/hr
--- NOTE | 2024-02-16 10:38 | CM ---
notified by Dr. Sutton that pt will be new to Eliquis. Pt is eligible for 30 day free trial and after that he can use a $10 copay card.
Pt's insurance covers 30 day supply at $30 cost to patient, so less costly to use the Eliquis cards which will be provided to pt today.
--- NOTE | 2024-02-16 10:39 | W.PN.PUL.V3 ---
Today's Communication / Plan
-
.
Repeat CT chest
Converted to oral anticoagulant and treat for minimum of 3 months.
Outpatient pulmonary follow-up
Assessment
-
63-year-old male non-smoker recently hospitalized with abdominal issues for 2 days presented with pleuritic upper back pain as well as fevers found to have DVT and probable pulm embolism-pulmonary consulted for pulmonary embolism 02/15/2024.
Pulm embolism-possibly provoked though has family history
PESI-73, low risk, no evidence for right ventricular strain
Troponin negative, proBNP negative, elevated D-dimer
Pleurisy
DVT
Mild htxnju-cvuwchgtrc-itrzifchft 12.1
Mild hyponatremia
Mild hyperglycemia
Conditions present prior to admission:
Hypertension.
Hyperlipidemia.
Hypothyroid.
Depression.
Duodenitis and gastritis hospitalized 02/07/2024.
Laminectomy. EGD 02/09/2024.
Plan
Patient admitted with a diagnosis of pulmonary embolism and significant pleurisy
Supplemental oxygen as needed-currently 97% on room air
Aspiration precautions
Incentive spirometry
CT chest personally reviewed-small subsegmental clot probable
Lower extremity ultrasound positive for acute DVT.
Repeat CT chest 02/16/24-persistent filling defect bilateral lower lobes consistent with subsegmental pulmonary emboli
Recommend eventual hypercoagulable workup-family history with daughter with DVT summarized above
Full PESI summarized above-low risk
Heparin drip or Lovenox 1 mg/kg every 12 hours
Convert to oral anticoagulant for minimum of 3-6 months
Reevaluate lower extremity ultrasounds and CT chest at that time to ensure clot resolution
Recommend eventual hypercoagulable workup with family history of DVT and probable minimally provoked clot-was hospitalized for 2 days with gastritis recently
Benefits and risks of thrombolytics therapy have been reviewed and risks outweigh the benefits in this patient without tachycardia, low PESI score, no hypotension, etc.
Bedrest �24 hours
DVT prophylaxis-on full anticoagulation
Early nutrition
Early mobilization.
Reviewed with hematology.
Reviewed with primary team
Outpatient pulmonary follow-up
Outpatient appropriate malignancy screening including colonoscopy and prostate exam
Diagnostic data:
Chest x-ray 02/07/2024-left basilar opacification likely atelectasis
Chest x-ray 03/05-mild subpleural scarring and subsegmental atelectasis basilar left lower lobe and lingula, mild elevation of the right hemidiaphragm
CT abdomen and pelvis 02/07/2024-diffuse gastric wall thickening consistent with gastritis, renal calculi 1.1 cm on the right and 8 mm on the left, gallbladder is mildly distended
CT abdomen and pelvis 02/13/24-no large filling defects within the main or subsegmental pulmonary arteries, left lower lobe nonopacification of small subsegmental branch, trace right pleural effusion, bilateral nephrolithiasis without hydronephrosis
Lower extremity ultrasound 02/14/2024-acute nonocclusive DVT both lower extremities
HIDA scan 02/08/2024-no evidence for cystic duct obstruction
Subjective Data
-
Date of Service:
Date of Service: February 16, 2024
Chief Complaint: Pulmonary Follow Up, Dyspnea Follow Up and VTE Follow Up
Subjective:
. No new complaints, has back pleuritic pain
Review of Systems
General: Other (per HPI)
Objective Data
Data Reviewed
Vital Signs / I&O:
Vital Signs
Temp Pulse Resp BP Pulse Ox
98.4 F 66 18 118/76 97
02/16/24 08:32 02/16/24 09:10 02/16/24 08:32 02/16/24 09:10 02/16/24 08:32
Intake and Output
02/15/24 02/16/24 02/17/24
06:59 06:59 06:59
Intake Total 1092 / 1092 600 / 600
Output Total 1575 / 1575
Balance -483 / -483 600 / 600
SaO2: 97
Physical Exam
General: Respiratory Distress (n) and Comfortable
HEENT: Normocephalic, Anicteric and Moist Mucous Membranes
Cardiovascular: Regular Rhythm
Respiratory: Wheeze (n), Crackles (n), Rhonchi (n), Non-Labored Respirations, Accessory Resp Muscle Use and Stridor (n)
GI: Soft and Non Distended
Neurology: Awake, Alert and No Motor Deficits
Labs/Micro/Reports
Lab Data
02/16/24 08:09
02/16/24 08:09
Laboratory Results
02/16/24
08:09
APTT 169.2 H*
Microbiology
02/13/24 15:31 Nasal Swab Influenza Types A & B (RICH) - Final
Negative for Influenza A & B, NAAT
Negative results must be combined with clinical observations
and patient history.
Nucleic Acid Amplification test (NAAT)performed on the
[employer] platform.
[2024-02-16 12:12] VITALS: BP 112/60
--- NOTE | 2024-02-16 12:59 | W.PN.HOSP.TC ---
Today's Communication/Plan
-
dc to home
Assessment / Plan
Assessment / Plan
assessment:
Suspected acute PE
- fever, pleuritic chest/back pain, recent hospitalization although no other provoking factors identified
- CT: Small filling defect within a subsegmental pulmonary artery within the left lower lobe. This is felt to most likely be artifactual, related to respiratory motion artifact, however small subsegmental pulmonary embolism is not completely
excluded.
- US: suspected acute nonocclusive deep venous thrombosis in the right popliteal, peroneal, and posterior tibial veins and suspected acute nonocclusive deep venous thrombosis in the left popliteal and posterior tibial veins
- repeat CT: Persistent filling small defects within the bilateral lower lobe subsegmental pulmonary arteries which likely represent subsegmental pulmonary emboli
- elevated D-dimer noted
- trop and BNP normal
- d/w Hematology and pulm. DC on Eliquis x 3 months and OP f/u hematology office
- pain control with Tylenol, tramadol prn
recent admission for Acute epigastric pain/gastritis
- CT: Diffuse gastric wall thickening which can be seen with gastritis. Mild colonic stool burden. The gallbladder is mildly distended without CT findings suggestive of acute cholecystitis and can be seen with fasting state
- US: Relative prominent gallbladder containing stones and sludge with top normal gallbladder wall. Negative sonographic Ruby's sign. No findings to suggest biliary tract dilatation.
- HIDA: No scintigraphic evidence of cystic duct duct obstruction.
- GS evaluated, no surgical intervention
- s/p EGD 02/08: duodenitis and gastritis. Biopsies pending. PPI daily per GI
- stop NSAIDs
- continue regular diet
- continue 10 day empiric Augmentin course, ending 02/19/23
Recent acute sinusitis
- treated with Augmentin course previously
Essential hypertension
- continue losartan/hydrochlorothiazide
Hyperlipidemia
- continue statin
Hypothyroidism
- continue levothyroxine
Depression
- continue fluoxetine
- continue nortriptyline
BPH
- resume alfuzosin
DVT ppx: IV heparin
Code: Full
More than 30 minutes spent in discharge including
Final examination of the patient
Summarizing hospital stay
Instructions for continuing care to all relevant caregivers
Preparation of discharge records, prescriptions, and referral forms
Total time spent (in minutes):41
Anticipated Discharge: Today
Subjective/Interval History
-
Date of Service: February 16, 2024
[address]-PE repeat confirmed clot
Objective Data
-
Labs:
Laboratory Results
02/16/24 02/16/24
08:09 16:27
WBC 7.0
Hgb 11.4 L
Hct 32.6 L
Plt Count 221 D
APTT 169.2 H* Pending
Sodium 133 L
Potassium 4.0
Chloride 93 L
Carbon Dioxide 31 H
BUN 14
Creatinine 0.9
Glucose 100 H
Calcium 9.2
Total Bilirubin 0.6
AST 46
ALT 74 H
Alkaline Phosphatase 61
Vital Signs:
Vital Signs
Temp Pulse Resp BP Pulse Ox
98 F 62 18 112/60 92
02/16/24 12:12 02/16/24 12:12 02/16/24 12:12 02/16/24 12:12 02/16/24 12:12
I&O
02/15/24 02/16/24 02/17/24
06:59 06:59 06:59
Intake Total 1092 / 1092 600 / 600
Output Total 1575 / 1575
Balance -483 / -483 600 / 600
Physical Exam
-
General: No Apparent Distress
HEENT: Normocephalic and Atraumatic
Respiratory: Negative Wheezes
Cardiac: Regular Rhythm and S1/S2
GI: Soft
Genito-urinary: No Costovertebral Tender
Musculoskeletal: No Edema
Neuro: AO x 3
Psych: Calm
Data Reviewed
-
Total Time Spent with Patient (in minutes): 44
Labs: Labs Reviewed by me
--- NOTE | 2024-02-16 13:11 | W.DS.TRANS ---
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
-
Discharge Instructions:
Discharge Diagnosis/Procedures bilateral PE, DVTs
Diet Regular
Activity As tolerated
Bathing Restrictions None
Instructions:
Stand-Alone Forms:
Changes to Home Medications: No
Discharge Medications:
DC Medications w/original date entered in [employer]
alfuzosin 10 mg tablet,extended release 24 hr 10 mg PO HS Urinary Issue 02/07/24
atorvastatin 20 mg tablet 20 mg PO HS High Cholesterol 02/07/24
fluoxetine 40 mg capsule 40 mg PO DAILY Mental Health/Anxiety 02/07/24
gabapentin 300 mg capsule 300 mg PO BID Neuropathic pain 02/07/24
levothyroxine 50 mcg tablet 50 mcg PO DAILY Thyroid 02/07/24
losartan 100 mg-hydrochlorothiazide 25 mg tablet 1 tab PO DAILY Blood Pressure 02/07/24
amoxicillin 875 mg-potassium clavulanate 125 mg tablet 1 tab PO BID Infection 02/08/24
pantoprazole 40 mg tablet,delayed release (Protonix) 40 mg PO DAILY #30 tabs 02/09/24
acetaminophen 325 mg tablet 650 mg (2 x 325 mg) PO Q4HPRN PRN mild pain/WHIPPLE/temp> 100.4F #100 tabs 02/16/24
apixaban 5 mg tablet (Eliquis) 5 mg PO BID #60 tabs 02/16/24
apixaban 5 mg tablet (Eliquis) 5 mg PO BID #74 tabs 02/16/24
oxycodone 5 mg tablet 5 mg PO Q4HPRN PRN moderate pain #15 tabs 02/16/24
Home Medication Changes
Pending Results: No
Total time spent discharging patient (in min): 41
[2024-02-16] MEDS: ELIQUIS 10 MG PO (13:24)
--- NOTE | 2024-02-16 13:47 | CM ---
CM met with Cody and his at bedside prior to discharge. Requested scrub pants, as his forgot to bring them today.
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 Cody will be returning home with his and does not anticipate any needs.
Pt is new to [facility] - provided Free 30 day trial card as well as $10 copay card. Without copay cards, cost would be $30/month.
Plan: Discharge to home with no identified needs.
== END 2024-02-16 14:00 | disposition home or self-care (01) | DRG 176 ==
LOC: 4 EAST ACU 22:17
PROVIDERS: Clinical Nurse Specialist Family Health; ADMITTING PHYSICIAN Internal Medicine; ATTENDING PHYSICIAN Internal Medicine; CONSULT PHYSICIAN Internal Medicine Critical Care Medicine; CONSULT PHYSICIAN Internal Medicine Hematology & Oncology; EMERGENCY PHYSICIAN Emergency Medicine; FAMILY PHYSICIAN Physician Assistant Surgical
DX: I26.93 Single subsegmental thrombotic pulmonary embolism without acute cor pulmonale (principal); J98.11 Atelectasis; E87.1 Hypo-osmolality and hyponatremia; E78.00 Pure hypercholesterolemia, unspecified; F32.A Depression, unspecified; E03.9 Hypothyroidism, unspecified; N40.0 Benign prostatic hyperplasia without lower urinary tract symptoms; I10 Essential (primary) hypertension; J01.90 Acute sinusitis, unspecified; Z11.52 Encounter for screening for COVID-19
CPT/HCPCS: 71046; 71275; 74177; 80053; 81003; 83690; 83880; 84484; 85025; 85027; 85379; 85730; 87502; 87811; 93005; 93970; 96361; 96374; 96375; 96376; 99285; Q9967

== ENCOUNTER 2024-02-17 16:22 | Emergency (ER) | payer OTHER, SELFPAY ==
[2024-02-17 16:29] VITALS: BP 113/68
--- NOTE | 2024-02-17 16:35 | ED.GENMED ---
ED Provider Triage
<Daren Delcid PA-C - Last Filed: 02/17/24 16:36>
-
Patient seen by provider in Triage?: Seen in Triage
63-year-old male discharged from this hospital yesterday. He had bilateral pulmonary emboli. He started on Eliquis. Starting today he developed abdominal pain and vomiting. No new chest pain or shortness of breath. No blood in the vomit. Notes
ongoing nausea. Missed his dose of Eliquis today due to the vomiting
Vital signs stable at triage. Start workup with CBC CMP lipase.
Patient seen by healthcare provider at triage but warrants further assessment
History of Present Illness
<Daren Delcid PA-C - Last Filed: 02/17/24 16:36>
General
Chief Complaint: Abdominal Symptoms
Time Seen by Provider: 02/17/24 18:24
<Dennis Fiore DO - Last Filed: 02/17/24 19:37>
General
Source: patient
Exam Limitations: none
History of Present Illness
History of Present Illness:
See MDM
Past History
<LADY Gomez Last Filed: 02/17/24 16:36>
Past History
ED Past Medical History: HTN, Hypercholesterolemia, Hypothyroidism and Other (depression)
ED Past Surgical History: None (lamienctomy)
Social History
Tobacco: Non-smoker
Alcohol: Occasional
Drug: None
Personal:
Living: with family
Family History
Family History: CAD (father cad in 80s) and Other
Phy Exam
<Dennis Fiore DO - Last Filed: 02/17/24 19:37>
Physical Exam
Physical Exam:
See MDM
Course
<LADY Gomez Last Filed: 02/17/24 16:36>
Orders/Labs/Results
Orders:
Orders
02/17/24 16:38
COVID-19 Antigen Urgent
Source: Nasal Swab
Complete Blood Count/With Diff Urgent
Comprehensive Metabolic Panel Urgent
Lipase Urgent
Influenza A+B Rapid Molecular Urgent
ANASTASIA Source: Nasal Swab
Specimen Description:
02/17/24 18:36
0.9% Sodium Chloride 1000 ml [Nss] 1,000 ml IV BOLUS
Ondansetron Injectable [Zofran] 4 mg IV NOW STA
02/17/24 18:37
Apixaban [Eliquis] 5 mg PO ONCE ONE
02/17/24 18:52
Ondansetron Orally Disint [Zofran Odt (Orally Disintegrating)] 4 mg PO NOW STA
Abnormal Lab Results
02/17/24
16:38
WBC 13.0 H 10^3/uL
(4.8-10.8)
RBC 4.15 L 10^6/uL
(4.70-6.10)
Hct 37.3 L %
(39.0-52.0)
MCH 32.0 H pg
(27.0-31.0)
Absolute Neuts (auto) 11.4 H 10^3/uL
(1.4-6.5)
Absolute Lymphs (auto) 0.6 L 10^3/uL
(1.2-3.4)
Absolute Monos (auto) 0.9 H 10^3/uL
(0.1-0.6)
Neutrophils % 87.6 H %
(42.2-75.2)
Lymphocytes % 4.9 L %
(20.5-51.1)
Sodium 133 L mmol/L
(135-145)
Chloride 95 L mmol/L
(98-107)
Glucose 145 H mg/dl
(70-99)
ALT 85 H U/L
(0-50)
02/17/24 16:38
02/17/24 16:38
Vital Signs
Initial and Last Documented VS:
Initial Vital Signs
Temp Pulse Resp BP Pulse Ox
97.7 F 83 16 113/68 94
02/17/24 16:29 02/17/24 16:29 02/17/24 16:29 02/17/24 16:29 02/17/24 16:29
Last Documented Vital Signs
Temp Pulse Resp BP Pulse Ox
97.7 F 83 16 113/68 94
02/17/24 16:29 02/17/24 16:29 02/17/24 16:29 02/17/24 16:29 02/17/24 16:29
<Dennis Fiore, DO - Last Filed: 02/17/24 19:37>
Orders/Labs/Results
Orders:
Orders
02/17/24 16:38
COVID-19 Antigen Urgent
Source: Nasal Swab
Complete Blood Count/With Diff Urgent
Comprehensive Metabolic Panel Urgent
Lipase Urgent
Influenza A+B Rapid Molecular Urgent
ANASTASIA Source: Nasal Swab
Specimen Description:
02/17/24 18:36
0.9% Sodium Chloride 1000 ml [Nss] 1,000 ml IV BOLUS
Ondansetron Injectable [Zofran] 4 mg IV NOW STA
02/17/24 18:37
Apixaban [Eliquis] 5 mg PO ONCE ONE
02/17/24 18:52
Ondansetron Orally Disint [Zofran Odt (Orally Disintegrating)] 4 mg PO NOW STA
Abnormal Lab Results
02/17/24
16:38
WBC 13.0 H 10^3/uL
(4.8-10.8)
RBC 4.15 L 10^6/uL
(4.70-6.10)
Hct 37.3 L %
(39.0-52.0)
MCH 32.0 H pg
(27.0-31.0)
Absolute Neuts (auto) 11.4 H 10^3/uL
(1.4-6.5)
Absolute Lymphs (auto) 0.6 L 10^3/uL
(1.2-3.4)
Absolute Monos (auto) 0.9 H 10^3/uL
(0.1-0.6)
Neutrophils % 87.6 H %
(42.2-75.2)
Lymphocytes % 4.9 L %
(20.5-51.1)
Sodium 133 L mmol/L
(135-145)
Chloride 95 L mmol/L
(98-107)
Glucose 145 H mg/dl
(70-99)
ALT 85 H U/L
(0-50)
02/17/24 16:38
02/17/24 16:38
Vital Signs
Initial and Last Documented VS:
Initial Vital Signs
Temp Pulse Resp BP Pulse Ox
97.7 F 83 16 113/68 94
02/17/24 16:29 02/17/24 16:29 02/17/24 16:29 02/17/24 16:29 02/17/24 16:29
Last Documented Vital Signs
Temp Pulse Resp BP Pulse Ox
97.7 F 83 16 113/68 94
02/17/24 16:29 02/17/24 16:29 02/17/24 16:29 02/17/24 16:29 02/17/24 16:29
<Dennis Fiore, DO - Last Filed: 02/17/24 19:37>
MDM/Problems Addressed
Differential Diagnosis Includes:
HPI and MDM Narrative:
63-year-old male presenting for evaluation of nausea, vomiting and abdominal pain. He was just discharged yesterday when he was admitted for bilateral PEs. Patient was placed on Augmentin for possible diverticulitis and possible sinusitis. He did
have a prior CT of his abdomen which showed diverticulosis without evidence of diverticulitis. He was placed on antibiotics given the abdominal pain. He was discharged yesterday after he was placed on Eliquis. His brought him back because he
has been throwing up and unable to take his medicine.
On exam, patient has a very benign and nontender abdomen. He states his abdomen is better after taking the Augmentin. We discussed the possibility of an additional gastroenteritis on top of his other issues. Given that his abdominal pain is
improving, we discussed low utility for repeat CT. Both patient and agree.
Will treat as likely viral gastroenteritis with fluids and Zofran.
Physical exam
General: Well appearing and non-toxic
HEENT: protecting airway. Dry mucous membranes
Neck: appears supple
CV: No evidence of cyanosis
Resp: No accessory muscle use
Abd: Non-distended. Soft and nontender
Extremities: No deformities
Neuro: alert
Psych: Normal affect
Skin: Intact
Problems Addressed including Acute and Chronic Conditions affecting care:
1. Abdominal pain and vomiting
Acuity: acute
Prognosis: stable
Details: Likely in the setting of viral gastroenteritis. He had recent CT showing diverticulosis without diverticulitis and he has since been on Augmentin
Updates
I did discuss his elevated blood sugar and discussed having this reevaluated by his PCP
On reassessment after IV fluids, patient states he is feeling much better and feels comfortable going home. He is tolerating p.o.
Differential Diagnosis (but not limited to): Diverticulosis, diverticulitis, viral gastroenteritis
Testing considered: Repeat CT but abdominal pain is improving
Drug therapy (if applicable): OTC meds, please see d/c instruction regarding Rx drugs
Amount and/or Complexity of Data Reviewed
Clinical info obtained from: Patient
External data reviewed: Recent admission for bilateral PEs where he was also treated for possible diverticulitis
Labs I independently reviewed (but not limited to): Mild leukocytosis
Radiology: N/A
Pulse Ox: not hypoxic
EKG independently reviewed: N/A
Anesthesiologist Assistant: N/A
Critical Care: N/A
Risk of Complication:
Social Determinants of health: Good social support
Discussed with other providers: N/A
Escalation of Care includes Admit/Obs: After being observed in the Emergency Department, pt stable for discharge.
Occasional wrong word or 'sound a like' substitutions may have occurred due to the inherent limitations of voice recognition software. Read the chart carefully and recognize, using context, where substitutions have occurred.
<Dennis Fiore DO - Last Filed: 02/17/24 19:37>
*Critical Care Note
Total Time (30-74mins, 75-104mins- exclusive of procedures): Not Applicable
ED Attending Note
<Daren Delcid PA-C - Last Filed: 02/17/24 16:36>
-
Portions of this chart may have been created with voice recognition software.� Occasional wrong word or��sound alike� substitutions may have occurred due to the inherent limitations of voice recognition software.
Discharge Plan
Departure
Patient Disposition: Home (Routine Discharge)
Date of Disposition: 02/17/24
Time of Disposition: 19:36
Patient with high blood pressure during this ER visit?: No
Discharge Problem:
Viral gastroenteritis
Instructions: Nausea and Vomiting, Adult (DC)
Prescriptions:
New
ondansetron 4 mg Tablet,Disintegrating
4 mg PO BIDPRN PRN (Reason: nausea/vomiting) Qty: 10 0RF
No Action
fluoxetine 40 mg Capsule
40 mg PO DAILY
atorvastatin 20 mg Tablet
20 mg PO HS
losartan-hydrochlorothiazide 100-25 mg Tablet
1 tab PO DAILY
levothyroxine 50 mcg Tablet
50 mcg PO DAILY
gabapentin 300 mg Capsule
300 mg PO BID
alfuzosin 10 mg Tablet Extended Release 24 Hr
10 mg PO HS
amoxicillin-pot clavulanate 875-125 mg Tablet
1 tab PO BID
Rx Instructions:
take for 21 days starting 01/30/24
pantoprazole [Protonix] 40 mg tablet,delayed release (DR/EC)
40 mg PO DAILY Qty: 30 0RF
acetaminophen 325 mg Tablet
650 mg PO Q4HPRN PRN (Reason: mild pain/WHIPPLE/temp> 100.4F) Qty: 100 0RF
oxycodone 5 mg Tablet
5 mg PO Q4HPRN PRN (Reason: moderate pain) Qty: 15 0RF
Eliquis 5 mg tablet
5 mg PO BID Qty: 74 0RF
Rx Instructions:
take 2 tabs BID x 1 week, then 1 tab BID thereafter (starter pack dosing)
Eliquis 5 mg tablet
5 mg PO BID Qty: 60 1RF
Rx Instructions:
use after starter dose script is complete. Keep on hold in patients file. Thanks
Referrals:
Arlin De Jesus PA [Non-Admitting Privileges] -
Activity Restrictions/Additional Instructions:
As we discussed, your symptoms might be related to viral gastroenteritis. However, please continue your antibiotics. Please take the nausea medicine as needed. If you continue to vomit and are unable to take your medicines, please return.
Please return for any worsening symptoms.
You may return at any time if you have further concerns.
Please follow up with your doctor at the first available appointment, preferably this week. Please discuss your symptoms and your persistently mildly elevated blood sugar.
Thank you for choosing [facility].
Interventions
Interventions:
*Risk Screen - Suicide Last Done: 02/17/24 16:32
*Neglect/Abuse Screening Last Done: 02/17/24 16:32
Discharge Date and Time
Print Language: SERBIAN
[2024-02-17 16:52] LABS: % Basophils 0.2 % (0-2); % Eosinophils 0.1 % (0-6); % Immature Granulocytes 0.3 % (0-0.5); % Lymphocytes 4.9 % (20.5-51.1); % Monocytes 6.9 % (1.7-9.3); % Neutrophils 87.6 % (42.2-75.2); Absolute Lymphocytes 0.6 10^3/uL (1.2-3.4); Absolute Monocytes 0.9 10^3/uL (0.1-0.6); Absolute Neutrophils 11.4 10^3/uL (1.4-6.5); Hematocrit 37.3 % (39.0-52.0); Hemoglobin 13.3 g/dL (13.0-18.0); Mean Corp Hgb Conc. 35.7 g/dL (33.0-37.0); Mean Corpuscular Volume 89.9 fL (80.0-94.0); Mean Platelet Volume 9.5 fL (7.4-10.4); Nucleated Red Blood Cells % 0 % (-); Platelet Count 298 10^3/uL (130-400); Red Blood Cell Count 4.15 10^6/uL (4.70-6.10); Red Cell Dist. Width 11.9 % (11.5-14.5)
[2024-02-17 17:17] LABS: ALT (SGPT) 85 U/L (0-50); AST (SGOT) 49 U/L (17-59); Albumin 3.9 g/dl (3.5-5.0); Alkaline Phosphatase 67 U/L (38-126); Blood Urea Nitrogen 17 mg/dl (9-20); Calcium 9.2 mg/dl (8.4-10.2); Carbon Dioxide 25 mmol/L (22-30); Chloride 95 mmol/L (98-107); Glucose 145 mg/dl (70-99); Lipase 30 U/L (23-300); Potassium 4.3 mmol/L (3.5-5.1); Sodium 133 mmol/L (135-145); Total Protein 7.1 g/dl (6.3-8.2); eGFR > 60.00
[2024-02-17] MEDS: NSS 1000 IV (18:50)
[2024-02-17] MEDS: ELIQUIS 5 MG PO (18:51)
[2024-02-17] MEDS: ZOFRAN 4 MG IV (18:51)
[2024-02-17] MEDS: ZOFRAN ODT (ORALLY DISINTEGRATING) 4 MG PO (19:36)
[2024-02-17 20:16] LABS: COVID-19 Antigen Negative (Negative)
[2024-02-17 20:34] VITALS: BP 121/71
== END 2024-02-17 20:38 | disposition home or self-care (01) ==
LOC: EMR 16:22
PROVIDERS: Physician Assistant; EMERGENCY PHYSICIAN Student in an Organized Health Care Education/Training Program; FAMILY PHYSICIAN Nurse Practitioner Family; REFERRING PHYSICIAN Internal Medicine Cardiovascular Disease
DX: A08.4 Viral intestinal infection, unspecified (principal); I10 Essential (primary) hypertension; E78.00 Pure hypercholesterolemia, unspecified; E03.9 Hypothyroidism, unspecified; Z82.49 Family history of ischemic heart disease and other diseases of the circulatory system
CPT/HCPCS: 99283; 96374; 96361; 80053; 83690; 85025; 87502; 87811

== ENCOUNTER → 2024-07-11 14:53 | Outpatient (REF) | payer OTHER, SELFPAY | LOC: DHSLP 14:53 | PROVIDERS: ATTENDING PHYSICIAN Internal Medicine Critical Care Medicine; FAMILY PHYSICIAN Family Medicine | DX: G47.19 Other hypersomnia (principal); R06.83 Snoring | CPT/HCPCS: 95800 ==

== ENCOUNTER → 2024-07-12 10:25 | Outpatient (REF) | payer OTHER, SELFPAY ==
[2024-07-12 13:03] LABS: Blood Urea Nitrogen 15 mg/dl (9-20)
== END ==
LOC: REG 10:25
PROVIDERS: ATTENDING PHYSICIAN Internal Medicine Critical Care Medicine; FAMILY PHYSICIAN Nurse Practitioner Family
DX: I26.99 Other pulmonary embolism without acute cor pulmonale (principal); I82.409 Acute embolism and thrombosis of unspecified deep veins of unspecified lower extremity
CPT/HCPCS: 36415; 82565; 84520

== ENCOUNTER → 2024-07-15 10:27 | Outpatient (REF) | payer OTHER, SELFPAY | LOC: RAD 10:27 | PROVIDERS: ATTENDING PHYSICIAN Internal Medicine Critical Care Medicine; FAMILY PHYSICIAN Nurse Practitioner Family | DX: I26.99 Other pulmonary embolism without acute cor pulmonale (principal); I82.409 Acute embolism and thrombosis of unspecified deep veins of unspecified lower extremity | CPT/HCPCS: 71275; 93970; Q9967 ==

== ENCOUNTER 2024-09-08 08:01 | Emergency (ER) | payer OTHER, SELFPAY ==
[2024-09-08 08:03] VITALS: BP 154/85
[2024-09-08 08:39] LABS: Hematocrit 37.6 % (39.0-52.0); Hemoglobin 13.2 g/dL (13.0-18.0); Mean Corp Hgb Conc. 35.1 g/dL (33.0-37.0); Mean Corpuscular Volume 91.0 fL (80.0-94.0); Nucleated Red Blood Cells % 0 % (-); Platelet Count 142 10^3/uL (130-400); Red Cell Dist. Width 12.5 % (11.5-14.5)
--- NOTE | 2024-09-08 09:04 | ED.GENMED ---
Addendum entered and electronically signed by Víctor Gibson MD 09/08/24 17:58:
The patient was seen earlier, prescribed meclizine as well as Zofran. Meclizine was sent to pharmacy but Zofran was not sent over. Patient called requesting Zofran be resent. I resent prescription.
Original Note:
History of Present Illness
General
Chief Complaint: Dizziness
Source: patient and spouse
Exam Limitations: none
Time Seen by Provider: 09/08/24 08:49
Nursing documentation reviewed up to this point in time: agreed with
History of Present Illness
History of Present Illness:
Note:
CHIEF COMPLAINT(S)
Dizziness, nausea, and vertigo.
HISTORY OF PRESENT ILLNESS
The patient is a 63-year-old male who presented with symptoms that began yesterday immediately following a procedure. He reports feeling dizzy and nauseous, experiencing vertiginous symptoms described as 'the room spinning' when making any sudden
movements or turning his head. The dizziness persisted after he returned home and he also experienced vomiting. The symptoms were exacerbated by movements such as bending over. He did not take any medication for the dizziness but was taking
amoxicillin following surgery. He denied any falls, but mentioned that his walker was difficult to manage. While there is no notable pain, he feels drained and tired. He was advised by the office to visit the Emergency Department after contacting
them.
SOCIAL DETERMINANTS AFFECTING HEALTH
The patient does not smoke or drink alcohol daily, participating only occasionally. There is no mention of drug use such as marijuana.
MEDICATIONS
Patient reports regular use of atorvastatin, fluoxetine, levothyroxine, losartan, and apixaban for blood clots.
REVIEW OF SYSTEMS
- Neurological: Dizziness with head movement, sensation of spinning room (vertigo), general fatigue and weakness.
- Gastrointestinal: Nausea and episodes of vomiting.
PHYSICAL EXAM
Nursing notes reviewed and vital signs reviewed.
- General: No acute distress.
- Ear, Nose, and Tongue: No systolic bruits noted.
- Cardiovascular: Regular S1 and S2 heart sounds, no murmurs, rubs, or gallops detected.
- Pulmonary: No respiratory distress, lung sounds clear bilaterally.
- Abdomen: Soft, non-tender, non-distended, normal bowel sounds, no palpable masses or hernias.
- Extremities: No edema, pulses intact.
- Neurological: Cranial nerves II-XII intact, no neurologic deficits noted, slight nystagmus observed during examination.
PROBLEM LIST
- Acute Problems: Dizziness, vertigo, nausea.
- Chronic Problems: History of blood clots, managed with apixaban.
PLAN
- Conduct blood tests to evaluate electrolyte levels and overall condition.
- Physical therapy consultation to address vertigo, focusing on exercises for inner ear vestibular repositioning maneuvers.
- Provide a prescription for meclizine for vertigo symptoms to be used cautiously and not around the time of physical therapy sessions to avoid blunting therapeutic effects.
DIFFERENTIAL DIAGNOSIS
The Differential Diagnosis includes, in no particular order and is not limited to:
1. Benign Paroxysmal Positional Vertigo (BPPV)
2. Vestibular Neuritis
3. Labyrinthitis
4. Cerebrovascular Accident (Stroke)
5. Menieres Disease
6. Medication Side Effects
7. Dehydration
8. Orthostatic Hypotension
9. Migraine-associated Vertigo
10. Anxiety-induced Vertigo
EKG
My independent EKG interpretation is:
- Time of EK:59 a.m.
- Rhythm: Sinus bradycardia with first-degree AV block
- Heart Rate: 55 bpm
- Notable Intervals:
- Normal ID interval
- Normal QTc interval
- QRS Duration: Within normal limits
- Ninole: Not specified
- Abnormalities Observed: No signs of ischemia
CARE-UPDATE
09/08/24 - 10:53
The physical therapists assessment suggests a condition consistent with vertigo, ruling out intracranial hemorrhage or cerebrovascular accident. meclizine will be prescribed. The patient is advised to continue physical therapy and will follow up.
Disposition:
SUMMARY OF ENCOUNTER
The patient, a 63-year-old male, presented to the emergency department with symptoms of dizziness, nausea, and vertigo that started immediately after a recent procedure. These symptoms were exacerbated by movements and included a sensation of the
room spinning, accompanied by vomiting. The patient did not take any medications for dizziness before visiting the ED. On examination, slight nystagmus was observed. No acute neurological deficits were noted. The patient was diagnosed with vertigo,
suspected to be benign paroxysmal positional vertigo (BPPV).
DISPOSITION
Discharge home.
ASSESSMENT
The patient is experiencing vertigo, likely due to benign paroxysmal positional vertigo (BPPV) following a recent procedure.
PLAN
The patient is to be discharged home with a prescription for meclizine to help alleviate vertigo symptoms. It was advised to use meclizine cautiously and not around the time of physical therapy exercises to avoid reducing the effectiveness of
vestibular maneuvers.
INDEPENDENT REVIEW OF LABS AND INTERPRETATION OF TESTS
My independent EKG interpretation is sinus bradycardia with first-degree AV block, heart rate at 55 bpm, normal ID and QTc intervals, and QRS duration within normal limits. No ischemia observed.
FOLLOW-UP INSTRUCTIONS
The patient is advised to continue physical therapy and is scheduled for a follow-up appointment after Thanksgi. Further follow-up instructions with his primary care provider are recommended to monitor his condition closely.
MEDICATION RECONCILIATION
Meclizine prescribed for vertigo symptoms.
MEDICAL DECISION MAKING
- Number and Complexity of Problems Addressed: Chronic conditions affecting care include history of blood clots managed with apixaban, along with vertigo symptoms post-procedure. Differential diagnosis includes benign paroxysmal positional vertigo,
vestibular neuritis, labyrinthitis, cerebrovascular accident (stroke), Menieres disease, medication side effects, dehydration, orthostatic hypotension, migraine-associated vertigo, and anxiety-induced vertigo.
- Data:
Category 1: My independent EKG interpretation revealed sinus bradycardia with first-degree AV block.
- Risk:
Consideration of Admission/Observation: Escalation of care including admission/observation was considered given the complexity and risk of the patients presenting complaint, exam findings, and underlying comorbidities. However, ultimately I feel the
patient is safe for outpatient management with close follow up. Reasoning: Work-up reassuring, does not reveal any acute life/organ threatening processes, patients symptoms well controlled upon reevaluation, reexamination is reassuring, vitals are
stable, patient agreeable with discharge, reliable for follow-up.
DIAGNOSIS
- Vertigo, Benign Paroxysmal Positional Vertigo (BPPV) (ICD-10-CM: H81.10)
Past History
Past History
ED Past Medical History: HTN, Hypercholesterolemia, Hypothyroidism and Other (depression)
ED Past Surgical History: None (lamienctomy)
Social History
Tobacco: Non-smoker
Alcohol: Occasional
Drug: None
Personal:
Living: with family
Family History
Family History: CAD (father cad in 80s) and Other
Phy Exam
Physical Exam
Physical Exam:
.
Course
Orders/Labs/Results
Orders:
Orders
09/08/24 08:19
Complete Blood Count/With Diff Urgent
Comprehensive Metabolic Panel Urgent
09/08/24 08:50
Electrocardiogram (*1) Urgent
Reason for Study: Vertigo / Dizzy
EKG- Treatment ONCE
09/08/24 09:07
Physical Therapy Consult [Pt Eval And Treat] Urgent
Treatment: vestibular evaluation
Activity Level: Ambulate
Abnormal Lab Results
09/08/24
08:19
RBC 4.13 L 10^6/uL
(4.70-6.10)
Hct 37.6 L %
(39.0-52.0)
MCH 32.0 H pg
(27.0-31.0)
MPV 10.8 H fL
(7.4-10.4)
Absolute Lymphs (auto) 1.1 L 10^3/uL
(1.2-3.4)
Glucose 100 H mg/dl
(70-99)
09/08/24 08:19
09/08/24 08:19
Vital Signs
Initial and Last Documented VS:
Initial Vital Signs
Temp Pulse Resp BP Pulse Ox
98.2 F 53 16 154/85 98
09/08/24 08:03 09/08/24 08:03 09/08/24 08:03 09/08/24 08:03 09/08/24 08:03
Last Documented Vital Signs
Temp Pulse Resp BP Pulse Ox
98.2 F 53 16 154/85 98
09/08/24 08:03 09/08/24 08:03 09/08/24 08:03 09/08/24 08:03 09/08/24 09:05
*Pulse Oximetry
SaO2: 98
Oxygen Mode of Delivery: Room air
Patient hypoxic: no
*Critical Care Note
Total Time (30-74mins, 75-104mins- exclusive of procedures): Not Applicable
ED Attending Note
-
Portions of this chart may have been created with voice recognition software.� Occasional wrong word or��sound alike� substitutions may have occurred due to the inherent limitations of voice recognition software.
Discharge Plan
Departure
Patient Disposition: Home (Routine Discharge)
Date of Disposition: 09/08/24
Time of Disposition: 11:07
Patient with high blood pressure during this ER visit?: Yes
Condition: Good
Discharge Problem:
Dizziness
Instructions: Vertigo (a Type of Dizziness) (DC), BLOOD PRESSURE
Prescriptions:
New
meclizine 25 mg tablet
25 mg PO TID PRN (Reason: dizziness) Qty: 10 0RF
No Action
fluoxetine 40 mg Capsule
40 mg PO DAILY
atorvastatin 20 mg Tablet
20 mg PO HS
losartan-hydrochlorothiazide 100-25 mg Tablet
1 tab PO DAILY
levothyroxine 50 mcg Tablet
50 mcg PO DAILY
gabapentin 300 mg Capsule
300 mg PO BID
alfuzosin 10 mg Tablet Extended Release 24 Hr
10 mg PO HS
amoxicillin-pot clavulanate 875-125 mg Tablet
1 tab PO BID
Rx Instructions:
take for 21 days starting 01/30/24
pantoprazole [Protonix] 40 mg tablet,delayed release (DR/EC)
40 mg PO DAILY Qty: 30 0RF
acetaminophen 325 mg Tablet
650 mg PO Q4HPRN PRN (Reason: mild pain/WHIPPLE/temp> 100.4F) Qty: 100 0RF
oxycodone 5 mg Tablet
5 mg PO Q4HPRN PRN (Reason: moderate pain) Qty: 15 0RF
Eliquis 5 mg tablet
5 mg PO BID Qty: 74 0RF
Rx Instructions:
take 2 tabs BID x 1 week, then 1 tab BID thereafter (starter pack dosing)
Eliquis 5 mg tablet
5 mg PO BID Qty: 60 1RF
Rx Instructions:
use after starter dose script is complete. Keep on hold in patients file. Thanks
ondansetron 4 mg Tablet,Disintegrating
4 mg PO BIDPRN PRN (Reason: nausea/vomiting) Qty: 10 0RF
Referrals:
Sandra Jean NP [Family Provider, Family Practice]
Interventions
Interventions:
*Risk Screen - Suicide Last Done: 09/08/24 08:03
*Neglect/Abuse Screening Last Done: 09/08/24 08:03
*ED COVID-19 Vaccine History Last Done: 09/08/24 08:22
ED- Neurological Assessment Last Done: 09/08/24 08:21
Discharge Date and Time
Print Language: CYMRO
[2024-09-08 09:48] LABS: ALT (SGPT) 48 U/L (0-50); AST (SGOT) 28 U/L (17-59); Albumin 4.4 g/dl (3.5-5.0); Alkaline Phosphatase 49 U/L (38-126); Blood Urea Nitrogen 14 mg/dl (9-20); Calcium 9.3 mg/dl (8.4-10.2); Carbon Dioxide 27 mmol/L (22-30); Chloride 102 mmol/L (98-107); Glucose 100 mg/dl (70-99); Potassium 3.8 mmol/L (3.5-5.1); Sodium 136 mmol/L (135-145); Total Protein 7.2 g/dl (6.3-8.2); eGFR > 60.00
[2024-09-08 10:00] VITALS: BP 128/71; PULSE 52; O2SAT 98
== END 2024-09-08 11:32 | disposition home or self-care (01) ==
LOC: EMR 08:01
PROVIDERS: Emergency Medicine; EMERGENCY PHYSICIAN Emergency Medicine; FAMILY PHYSICIAN Nurse Practitioner Family
DX: H81.10 Benign paroxysmal vertigo, unspecified ear (principal); R11.2 Nausea with vomiting, unspecified; E03.9 Hypothyroidism, unspecified; E78.00 Pure hypercholesterolemia, unspecified; I10 Essential (primary) hypertension; Z86.718 Personal history of other venous thrombosis and embolism; Z79.01 Long term (current) use of anticoagulants
CPT/HCPCS: 99284; 80053; 85025; 93005

== ENCOUNTER → 2024-11-17 21:15 | Outpatient (REF) | payer OTHER, SELFPAY | LOC: DHSLP 21:15 | PROVIDERS: ATTENDING PHYSICIAN Internal Medicine Critical Care Medicine; FAMILY PHYSICIAN Family Medicine | DX: G47.61 Periodic limb movement disorder (principal); R06.83 Snoring | CPT/HCPCS: 95810 ==